=== PATIENT | female | born 1985 | race African-American/Black ===

== ENCOUNTER 2018-03-23 06:28 | Day surgery (SDC) | payer MEDICAID, SELFPAY ==
[2018-03-23] VITALS (9 sets, daily range): BP systolic 116–136; BP diastolic 70–92; PULSE 66–73; RESP 14–18; TEMP 36.4–36.9; O2SAT 97–100; BMI 34.7
--- NOTE | 2018-03-23 | HID_PTH ---
PATIENT: TWIN RAMIREZ [place]: [facility] [place] U#:[id number] AGE/SX: 32/F ROOM: RE03/23/[address]: Dr. Joey Reyes MD : 1985 BED: DIS: 03/24/2018 SPEC #: [id number] RECD: 03/23/18 11:56 STATUS: SHAQ REMahsa #: [id number] AMELIE: 03/23/18 00:[address]: Joey Reyes DEPT: SURGICAL PATHOLOGY RECD BY: Caio Campuzano ENTERED: 03/23/18 11:56 SP TYPE: Lennie BIANCHI DR: Dr. Nikhil Osorio MD Tissues: Axilla, NOS Procedures: Surgery Specimen Level III HEADER OPERATION: Right axilla excision hidradenitis PRE-OP DIAGNOSIS: Hidradenitis suppurativa, personal history of methicillin resistant staphylococcus aureus infection TISSUE SUBMITTED: Right axilla hidradenitis soft tissue for permanent MICROSCOPIC DIAGNOSIS Right axilla hidradenitis: Skin with underlying tissue with mild chronic inflammation. KARRIE:jean 03/24/18 MICROSCOPIC DESCRIPTION Slides are reviewed. GROSS DESCRIPTION Received in fixative is one container labeled with the patient's name and designated right axilla hidradenitis soft tissue for permanent. The specimen consists of a piece of brown skin with underlying tissue measuring 7.5 x 4.5 cm and up to 1.5 cm in thickness. Sections do not reveal any mass lesion. Greenskeeper Laborer sections are submitted in three cassettes. / KARRIE:jean 03/23/18 TC:3 CPT: 58736
[2018-03-23] MEDS: Cefazolin 2 GM in 0.9% Normal Saline 100 ML IV (08:04)
--- NOTE | 2018-03-23 09:00 | PCM.IMDPSTOP ---
Immediate Post-Op Note Date of Procedure: 03/23/18 Primary Surgeon/Physician: Joey Reyes flamer sealer: None Pre-Operative Diagnosis: 1. Right axillary hidradenitis. 2. History of MRSA. 3. Smoker. Post-Operative Diagnosis: Same. Surgery/Procedure Performed:: Surgical preparation right axilla with excision hidradenitis (66 cm2). Description of Surgical Findings:: 32 year old woman presents for evaluation of hidradenitis in her right axillary area that has recently sustained a flare-up that necessitated antibiotic therapy. At present, she has no drainage. She still has some right axillary pain. She denies any fever. She had excision left axillary hidradenitis in 2010. She has a history of MRSA. Today the patient underwent surgical preparation right axilla with excision hidradenitis (66 cm2). Size of defect right axillary area - 11 x 6 x 1.5 cm. Estimated Blood Loss: 25 ml. Specimen's removed: Right axillary hidradenitis to Pathology and Microbiology. Drains: None. Type of Anesthesia:: General - Admit VTE Documentation VTE Present on Admission: No VTE Mechan Device Prophylaxis: SCD's VTE Pharm Prophylaxis ordered?: No
[2018-03-23] MEDS: Lactated Ringers 1,000 ML 60 ML IV (14:23)
[2018-03-23] MEDS: Cefazolin 1 GM/50 ML BAG IV ×2 (14:23→22:38)
--- NOTE | 2018-03-23 15:49 | CASEMGMT ---
RN JENNIFER received update from wound nurse that patient will need HHC for wound vac changes. KADI RODRIGUEZ obtained list of in-network HHC. [facility] denied due to staffing. Referral sent to [facility] and denied due to staffing. Referral sent to [facility] and status is pending. CM will continue to follow to assist with HHC setup.
--- NOTE | 2018-03-23 18:02 | PCM.OPRPT ---
Report of Operation Date of Procedure: 03/23/18 Pre-Operative Diagnosis: 1. Right axillary hidradenitis. 2. History of MRSA. 3. Smoker. Post-Operative Diagnosis: Same. Surgery/Procedure Performed:: Surgical preparation right axilla with excision hidradenitis (66 cm2). Description of Surgical Findings:: 32 year old woman presents for evaluation of hidradenitis in her right axillary area that has recently sustained a flare-up that necessitated antibiotic therapy. At present, she has no drainage. She still has some right axillary pain. She denies any fever. She had excision left axillary hidradenitis in 2010. She has a history of MRSA. Patient was informed of the risks and complications of the procedure including alternatives to surgery. These were discussed with the patient personally. Patient voices understanding and wishes to proceed. Some of the risks and complications were included in a form from the [place] [employer]. Size of defect right axillary area - 11 x 6 x 1.5 cm. technician inventory specialist: None Type of Anesthesia:: General Specimen's removed: Right axillary hidradenitis to Pathology and Microbiology. Drains: None. Estimated Blood Loss (mL): 25 ml. Description of Procedure: Patient was taken to OR in supine position and was placed under general anesthesia. The right axillary area was prepped and draped in the usual fashion. SCD's were placed for DVT prophylaxis. Perioperative antibiotics were given intravenously. Using xylocaine with epinephrine, the right axillary area was infiltrated. After waiting 5 minutes for the anesthetic to take effect, I made an incision around the area of chronic induration and redness indicative of hidradenitis. Dissection went through the subcutaneous tissue until the underlying muscle and fascia were seen. No pus was seen. A lot of fat necrosis was present. Some of the tissue was sent to Pathology for analysis to rule out carcinoma. Some of the tissue was sent to Microbiology for culture. A positive culture will necessitate antibiotic therapy. Hemostasis was obtained with electrocautery. The wound was irrigated with saline. The size of the wound after excision of the hidradenitis was 11 x 6 x 1.5 cm or 66 cm2. The wound was dressed with Mepitel nonadherent dressing followed by Kerlix gauze and Betadine followed by dry Kerlix gauze and ABD pad followed by a compression TEMO wrap. Patient tolerated the procedure well and was sent to PACU in satisfactory condition. Patient will be sent upstairs for continued postop care. Tomorrow the VAC will be applied. Once approved and tolerating po analgesia, she will be discharged home. After discharge, she will followup at the Wound Center. If there is a plateau in the healing process, then can proceed with delayed closure with skin grafting. Grafts/Implants Used: None. - Complications None. - Admit VTE Documentation VTE Present on Admission: No VTE Mechan Device Prophylaxis: SCD's VTE Pharm Prophylaxis ordered?: No Code Visit Surgery Charges CPT - 20569 ICD-10 - S41.101A, L73.2, Z86.14, F17.200
[2018-03-23] MEDS: Docusate Sodium 100 MG Capsule PO (22:38)
--- NOTE | 2018-03-24 00:03 | OP.PCM_ITS ---
Report of Operation Date of Procedure: 03/23/18 Pre-Operative Diagnosis: 1. Right axillary hidradenitis. 2. History of MRSA. 3. Smoker. Post-Operative Diagnosis: Same. Surgery/Procedure Performed:: Surgical preparation right axilla with excision hidradenitis (66 cm2). Description of Surgical Findings:: 32 year old woman presents for evaluation of hidradenitis in her right axillary area that has recently sustained a flare-up that necessitated antibiotic therapy. At present, she has no drainage. She still has some right axillary pain. She denies any fever. She had excision left axillary hidradenitis in 2010. She has a history of MRSA. Patient was informed of the risks and complications of the procedure including alternatives to surgery. These were discussed with the patient personally. Patient voices understanding and wishes to proceed. Some of the risks and complications were included in a form from the [place] [employer]. Size of defect right axillary area - 11 x 6 x 1.5 cm. car varnisher: None Type of Anesthesia:: General Specimen's removed: Right axillary hidradenitis to Pathology and Microbiology. Drains: None. Estimated Blood Loss (mL): 25 ml. Description of Procedure: Patient was taken to OR in supine position and was placed under general anesthesia. The right axillary area was prepped and draped in the usual fashion. SCD's were placed for DVT prophylaxis. Perioperative antibiotics were given intravenously. Using xylocaine with epinephrine, the right axillary area was infiltrated. After waiting 5 minutes for the anesthetic to take effect , I made an incision around the area of chronic induration and redness indicative of hidradenitis. Dissection went through the subcutaneous tissue until the underlying muscle and fascia were seen. No pus was seen. A lot of fat necrosis was present. Some of the tissue was sent to Pathology for analysis to rule out carcinoma. Some of the tissue was sent to Microbiology for culture. A positive culture will necessitate antibiotic therapy. Hemostasis was obtained with electrocautery. The wound was irrigated with saline. The size of the wound after excision of the hidradenitis was 11 x 6 x 1.5 cm or 66 cm2. The wound was dressed with Mepitel nonadherent dressing followed by Kerlix gauze and Betadine followed by dry Kerlix gauze and ABD pad followed by a compression TEMO wrap. Patient tolerated the procedure well and was sent to PACU in satisfactory condition. Patient will be sent upstairs for continued postop care. Tomorrow the VAC will be applied. Once approved and tolerating po analgesia, she will be discharged home. After discharge, she will followup at the Wound Center. If there is a plateau in the healing process , then can proceed with delayed closure with skin grafting. Grafts/Implants Used: None. - Complications None. - Admit VTE Documentation VTE Present on Admission: No VTE Mechan Device Prophylaxis: SCD's VTE Pharm Prophylaxis ordered?: No Code Visit Surgery Charges CPT - 48580 ICD-10 - S41.101A, L73.2, Z86.14, F17.200
[2018-03-24] MEDS: Cefazolin 1 GM/50 ML BAG IV ×2 (06:10→14:20)
[2018-03-24 06:19] LABS: Hematocrit 36.9 % (37-47); Hemoglobin 12.7 g/dl (12.0-15.0); Mean Corp Hgb Conc 34.4 g/gl (32-36); Mean Corpuscular Volume 84.2 fL (81-99); Mean Platelet Vol. 10.4 fl (6.2-12.0); Platelet Count 311 K/mm3 (150-450); RBC Distribution Width CV 14.7 % (11.6-14.6); RBC Distribution Width SD 44.3 fl (35.1-43.9); Red Blood Count 4.38 M/mm3 (4.2-5.4); White Blood Count 6.8 K/mm3 (4.4-11.0)
[2018-03-24] MEDS: oxyCODONE 5 MG Tablet 10 MG PO (06:19)
[2018-03-24] MEDS: Lactated Ringers 1,000 ML 60 ML IV (06:22)
[2018-03-24 06:24] LABS: Scan Indicated on CBC? Y/N NO
[2018-03-24 06:48] LABS: Anion Gap 8 (5-15); BUN 12 mg/dL (7-18); BUN/Creat Ratio 18.1 RATIO (10-20); Calcium,Total 8.4 mg/dL (8.5-10.1); Chloride 108 mmol/L (98-107); Creatinine, Serum 0.66 mg/dL (0.55-1.02); EST Glomerular Filtration Rate 109 mL/min (>60); Est Glom Filt Rate - Afr Amer 132 mL/min (>60); Estimated Creatinine Clearance 101.23 ml/min; Glucose 97 mg/dL (74-106); Potassium 3.9 mmol/L (3.5-5.1); Prealbumin 25.2 mg/dL (20.0-40.0); Sodium Level 141 mmol/L (136-145)
[2018-03-24 08:41] VITALS: BP 101/69; PULSE 82; RESP 16; TEMP 36.8; O2SAT 100
[2018-03-24] MEDS: Ondansetron 4 MG/2 ML Vial IV (08:55)
--- NOTE | 2018-03-24 10:00 | NURSING ---
wound photo: right axilla
[2018-03-24] MEDS: Docusate Sodium 100 MG Capsule PO (11:28)
[2018-03-24 12:47] VITALS: BP 124/72; PULSE 86; RESP 18; TEMP 37; O2SAT 100
--- NOTE | 2018-03-24 18:23 | PN.SURG_ITS ---
Subjective: Postop #1 Patient is resting comfortably. VAC applied today. - Physical Exam General: Alert, Oriented x3 HEENT: PERRLA, EOMI Oral: Moist Mucosa Neck: Supple Lungs: Clear to auscultation Cardiovascular: Regular rate, Regular Rhythm Skin: Ulcer/ Wound - right axillary wound is stable. No bleeding seen. VAC applied today. Neurological: Cranial nerves II-XII grossly intact Psych/Mental Status: Normal Affect, Appropriate Vital Signs Temp Pulse Resp BP Pulse Ox 98.6 F 86 18 124/72 H 100 03/24/18 12:47 03/24/18 12:47 03/24/18 12:47 03/24/18 12:47 03/24/18 12:47 Oxygen Delivery Method Room Air Weight: 195 lb 12.328 oz Body Mass Index (BMI) 34.7 Intake and Output for Last 24 Hours 03/22/18 03/23/18 03/24/18 23:59 23:59 23:59 Intake Total 1652 / 1652 1900 / 1900 Output Total 250 / 250 Balance 1402 / 1402 1900 / 1900 Microbiology Past 72 Hours 03/23/18 Unknown Gram Stain - Final Tissue - Other Wound Culture - Preliminary No growth-Final to follow Laboratory Tests Past 24 Hrs 03/24/18 03/24/18 05:20 05:20 WBC 6.8 RBC 4.38 Hgb 12.7 Hct 36.9 L MCV 84.2 MCH 29.0 MCHC 34.4 RDW 14.7 H RDW Differential 44.3 H Plt Count 311 MPV 10.4 Sodium 141 Potassium 3.9 Chloride 108 H Carbon Dioxide 25.0 Anion Gap 8 BUN 12 Creatinine 0.66 Estim Creat Clear Calc 101.23 Est GFR (MDRD) Af Amer 132 Est GFR (MDRD) Non-Af 109 BUN/Creatinine Ratio 18.1 Glucose 97 Calcium 8.4 L Prealbumin 25.2 Medical Necessity - Tobacco Use Smoking Status: Current every day smoker Tobacco Use: Cigarettes Assessment/Plan All Active Problems (Last Updated 03/20/18 @ 02:47 by Joey Reyes MD) Open wound of right axillary region (Acute) 1. Right axillary hidradenitis. 2. History of MRSA. 3. Smoker. 4. s/p surgical preparation right axilla with excision hidradenitis (66 cm2). 5. Open surgical hidradenitis wound right axilla. VAC applied today. To be changed three times per week at 150 mmHg continuous suction. Will have it changed at the Wound Center. Her operative culture is negative thus far. She will go home on Doxycycline. Her Prealbumin from 03/24/18 was 25.2. Encourage nutritional supplementation with protein to help the healing process. Encourage range of motion exercises to minimize stiffness. Encouraged patient to stop smoking as it may have deleterious effects on wound healing. VAC has been approved. Discharge home today. Followup Wound Center on Tuesday03/27/18. Wrote scripts for Percocet for pain (50 tabs) and for Valium for spasm (30 tabs) . Wrote script for Doxycycline for 14 days and 2 refills. Wrote scripts for Phenergan for nausea (30 tabs) and a refill and for Colace for constipation (60 tabs). Code Visit Inpatient E&M: 62061 Subs Hosp L2 - ICD-10 - S41.101A, L73.2, Z86.14, F17.200
--- NOTE | 2018-03-24 18:34 | PCM.DC ---
You will use the following diet at home:: No restrictions, Other - encourage nutritional supplementation with protein to help the healing process. Discharge Activity: May not drive while taking narcotic pain medications., - - encourage range of motion exercises to minimize stiffness. May shower in (days): 2 - may shower on the days the vac is changed. May resume sexual activity in: No Restrictions Weight Bearing Status: Weight bearing as tolerated Additional Activity Instructions:: VAC dressing changes three times per week at 150 mmHg continuous suction. Call your doctor if your incision/area has: Continuous Slow Oozing, Sudden Increased Bleeding, Increased Pain/ Swelling, Increased Redness, Foul Smelling Discharge, Swelling at the incision site Call your doctor if you observe: Fever of 101 or Higher, Coldness, Increased Pain, Shortness of breath, Chest pain, Calf discomfort, Uncontrolled pain Suture Line Care: - - vac changes three times per week. Cleanse incision/area with: Soap & Water - may cleanse the wound with soap and water on the days the vac is changed., - - may shower on the days the vac is changed. Allergies/Adverse Reactions: Allergies No Known Allergies Allergy (Verified 03/15/18 11:00) Medications to take at Discharge Diazepam [Valium] 5 mg PO 4X/DAY PRN PRN #30 tab 03/24/18 Docusate Sodium [Colace] 100 mg PO BID #60 cap 03/24/18 Doxycycline [Vibramycin] 100 mg PO BID #28 cap 03/24/18 Oxycodone HCl/Acetaminophen [Percocet 5/325] 1 - 2 tab PO 4X/DAY PRN PRN 7 Days #50 tab 03/24/18 proMETHazine tablet [Phenergan tablet] 25 mg PO 4X/DAY PRN PRN #30 tab 03/24/18 The following prescriptions were given: Diazepam [Valium] 5 mg PO 4X/DAY PRN PRN #30 tab PRN Reason: Spasms Oxycodone HCl/Acetaminophen [Percocet 5/325] 1 - 2 tab PO 4X/DAY PRN PRN 7 Days #50 tab PRN Reason: Pain proMETHazine tablet [Phenergan tablet] 25 mg PO 4X/DAY PRN PRN #30 tab PRN Reason: Nausea Docusate Sodium [Colace] 100 mg PO BID #60 cap Doxycycline [Vibramycin] 100 mg PO BID #28 cap Primary Care Physician: Nikhil Osorio MD [Primary Care Provider] - Test Results: Test results from this visit will be discussed in further detail at your follow-up appointment, if applicable. Please Follow Up With: Joey Reyes MD When: Tuesday03/27/18 at the wound center. Proposed Discharge Date: 03/24/18
[2018-03-24 18:52] VITALS: BP 126/79; PULSE 65; RESP 12; TEMP 37.1; O2SAT 97
== END 2018-03-24 19:00 | disposition home or self-care (01) ==
LOC: SDC 06:29 → AC 06:31 → MS3 08:12
PROVIDERS: Family Provider Family Medicine; PCP Family Medicine; Visit Provider Surgery
PROC: (CPT 11450; principal; 2018-03-23 07:45)
DX: L73.2 Hidradenitis suppurativa (principal); F17.210 Nicotine dependence, cigarettes, uncomplicated; Z86.14 Personal history of Methicillin resistant Staphylococcus aureus infection
CPT/HCPCS: 11450; 36415; 80048; 84134; 85027; 87015; 87070; 87075; 87116; 87205; 87206; 88304; J7120; J2405

== ENCOUNTER 2018-04-02 21:46 | Emergency (ER) | payer MEDICAID, SELFPAY ==
[2018-04-02 21:46] VITALS: BP 157/92; PULSE 81; RESP 17; TEMP 36.6; O2SAT 98; BMI 34.2
--- NOTE | 2018-04-02 23:20 | ED.DCSUM_ITS ---
- ER Visit Summary Date of Service: 04/02/18 Chief Complaint: Wound check History of Present Illness: The patient is a 32 F who recently had surgery for hidradenitis. She is a wound VAC to her right axilla. It was most recently changed on the . She tried to remove it tonight but the sponges stuck and causing her pain. She has an appointment Dr. Reyes tomorrow. Physical Examination: Blood pressure is 157/92, otherwise normal. Head neck examination unremarkable. Heart is regular rate and rhythm. Lung sounds are clear. Right axilla reveals wound VAC sponge in place. There is no surrounding cellulitis and no drainage from the wound. Test Results: [] Emergency Department Course and Treatment: Patient was treated with oxycodone. Lidocaine jelly was applied around the wound. 20 minutes later the wound was saturated with normal saline and the sponge was able to be removed. Wet-to-dry dressing is placed. She will follow-up with Dr. Reyes tomorrow as scheduled. Treatment Plan: [] Disposition: Discharge Impression: Wound VAC removal This note was generated with [employer] dictation software. It may contain incorrect words, spelling, and punctuation that were not noted in review of the chart prior to signing ED Disposition - Plan for ED Patient: Disposition: Home or Assisted Living Chief Complaint: Wound Check Instructions: ED Wound Check Post Op No Infec Referrals: Joey Reyes MD [STAFF PHYSICIAN] - Keep Elian appointment
[2018-04-02] MEDS: oxyCODONE 5 MG Tablet 10 MG PO (23:35)
--- NOTE | 2018-04-03 00:25 | ED.DEP ---
ED Disposition - Plan for ED Patient: Disposition: Home or Assisted Living Chief Complaint: Wound Check Instructions: ED Wound Check Post Op No Infec Referrals: Joey Reyes MD [STAFF PHYSICIAN] - Keep Elian appointment
[2018-04-03] MEDS: oxyCODONE 5 MG Tablet PO (00:38)
[2018-04-03 00:40] VITALS: BP 157/92; PULSE 77; RESP 15; O2SAT 95
== END 2018-04-03 00:42 | disposition home or self-care (01) ==
PROVIDERS: Emergency Provider Emergency Medicine; Family Provider Family Medicine; PCP Family Medicine
DX: Z48.01 Encounter for change or removal of surgical wound dressing (principal); Z98.890 Other specified postprocedural states; Z72.0 Tobacco use; Z79.2 Long term (current) use of antibiotics; Z79.899 Other long term (current) drug therapy
CPT/HCPCS: 99283

== ENCOUNTER 2018-04-10 09:00 | Outpatient (RCR) | payer MEDICAID, SELFPAY ==
[2018-03-27 09:09] VITALS: BP 137/85; PULSE 81; RESP 16; TEMP 36.5; BMI 34.5
--- NOTE | 2018-03-27 21:44 | PN.PCM_ITS ---
Type of Wound Date of Service: 03/27/18 Chief Complaint: Open surgical hidradenitis wound right axilla. History of Wound: Surgery 03/23/18 - Surgical preparation right axilla with excision hidradenitis (66 cm2). Wound care - VAC. Operative culture - negative. She was placed on Doxycycline perioperatively and is finishing them. Prealbumin from 03/24/18 was 25.2. Encourage nutritional supplementation with protein to help the healing process. Encourage range of motion exercises to minimize stiffness. Today she denies fever. Her appetite is good. Progress of Wound: Recent surgery 03/23/18. - Physical Exam Vital Signs Temp Pulse Resp BP 97.7 F L 81 16 137/85 H 03/27/18 09:09 03/27/18 09:09 03/27/18 09:09 03/27/18 09:09 Wound Measurements and Assessment WC - Nurse 1 - General Ulcer Measurement Start: 03/27/18 09:09 Freq: Status: Active Protocol: Activity Type Activity Date Activity User E-Sign Co-Sign Detail Recorded Client Recorded Date Recorded By Document 03/27/18 09:09 MW [id number] 03/27/18 09:15 MW 03/27/18 09:09 Wound Center Nurse 1 [Ulcer Assessment] #2 RIGHT AXILLARY -Combined with other wound No -Current Size (cm) - Length 4.0 -Current Size (cm) - Width 10.8 -Current Size (cm) - Depth 0.6 -Total Square Cm 43.20 -Date of Last Picture (Recall this 03/27/18 field) -Photo Taken Yes -Epithelialization None Present -Tunneling No -Undermining/Tunneling No -Circular Undermining No -Exudate Amt Medium (34-66%) -Exudate Type Serosanguineous -Wound Margin Flat & Intact -Granulation Amt Medium (34-66%) -Granulation Quality [place] -Slough/Fibrin Yes -Necrosis Amt Medium (34-66%) -Necrotic Tissue Type Adherent Slough -Structure Exposed N/A -Texture (Shruthi-wound Skin Appearance) No Abnormality Assessed -Moisture (Shruthi-wound Skin Appearance No Abnormality ) Assessed -Color (Shruthi-wound Skin Appearance) No Abnormality Assessed -Temperature (Shruthi-wound Skin No Abnormality Appearance) (Pt Warm) -Tenderness on Palpation (Shruthi-wound No Skin Appearance) -Ulcer Cleansing Rinsed/ Irrigated with Saline -Foul Odor after Cleansing No -Anesthetic Used 4% Lidocaine Solution [Edema Assessment] -Lower Limb Edema Present No WC - Nurse 2 - General Ulcer CM Notes Start: 03/27/18 09:09 Freq: Status: Active Protocol: Activity Type Activity Date Activity User E-Sign Co-Sign Detail Recorded Client Recorded Date Recorded By Document 03/27/18 09:30 [id number] 03/27/18 09:31 03/27/18 09:30 Wound Center Nurse 2 [Procedure/Treatment] #2 RIGHT AXILLARY -Correct Patient No -Correct Side, Site, Position No -Correct Procedure No -Procedure Performed No [See Physician Procedure note for Specifics] Pain Scale: 0-10 Numeric [Pain] -Is Patient Pain Free? Yes Debridement Note Post-Debridement Measurements/Treatment WC - Nurse 2 - General Ulcer CM Notes Start: 03/27/18 09:09 Freq: Status: Active Protocol: Activity Type Activity Date Activity User E-Sign Co-Sign Detail Recorded Client Recorded Date Recorded By Document 03/27/18 09:30 [id number] 03/27/18 09:31 03/27/18 09:30 Wound Center Nurse 2 #2 RIGHT AXILLARY -Correct Patient No -Correct Side, Site, Position No -Correct Procedure No -Procedure Performed No Pain Scale: 0-10 Numeric Is Patient Pain Free? Yes Wound debrided: #2 Right axilla. Laterality: Right Wound Grade/Stage: 2. No debridement was completed today - patient had recent surgery on 03/23/18. Assessment/Plan Assessment: 1. Right axillary hidradenitis. 2. History of MRSA. 3. Smoker. 4. s/p surgical preparation right axilla with excision hidradenitis (66 cm2) . 5. Open surgical hidradenitis wound right axilla. Plan: Continue the VAC. To be changed three times per week at 150 mmHg continuous suction. Her operative culture is negative. She is finishing the Doxycycline. Her Prealbumin from 03/24/18 was 25.2. Encourage nutritional supplementation with protein to help the healing process. Encourage range of motion exercises to minimize stiffness. Encouraged patient to stop smoking as it may have deleterious effects on wound healing. Followup one week.
[2018-03-29 09:45] VITALS: BP 123/86; PULSE 77; RESP 20; TEMP 36.4; BMI 34.5
[2018-04-03 11:01] VITALS: BP 150/96; PULSE 79; RESP 18; TEMP 36.6; BMI 34.5
--- NOTE | 2018-04-03 23:01 | PCM.WC.PN ---
Type of Wound Date of Service: 04/03/18 Chief Complaint: Open surgical hidradenitis wound right axilla. History of Wound: Surgery 03/23/18 - Surgical preparation right axilla with excision hidradenitis (66 cm2). Wound care - VAC. Operative culture - negative. She was placed on Doxycycline perioperatively and is finishing them. Prealbumin from 03/24/18 was 25.2. Encourage nutritional supplementation with protein to help the healing process. Encourage range of motion exercises to minimize stiffness. Today she denies fever. Her appetite is good. Progress of Wound: Improved. - Physical Exam Vital Signs Temp Pulse Resp BP 97.8 F 79 18 150/96 H 04/03/18 11:01 04/03/18 11:01 04/03/18 11:01 04/03/18 11:01 Wound Measurements and Assessment - Nurse 1 - General Ulcer Measurement Start: 03/27/18 09:09 Freq: Status: Active Protocol: Activity Type Activity Date Activity User E-Sign Co-Sign Detail Recorded Client Recorded Date Recorded By Document 04/03/18 11:01 [id number] 04/03/18 11:03 04/03/18 11:01 Wound Center Nurse 1 [Ulcer Assessment] #2 RIGHT AXILLARY -Combined with other wound No -Current Size (cm) - Length 3 -Current Size (cm) - Width 10.6 -Current Size (cm) - Depth 0.6 -Total Square Cm 31.8 -Photo Taken No -Epithelialization None Present -Tunneling No -Undermining/Tunneling No -Circular Undermining No -Exudate Amt Medium (34-66%) -Exudate Type Serosanguineous -Wound Margin Distinct, Outline Attached -Granulation Amt Medium (34-66%) -Granulation Quality [place] Red -Slough/Fibrin Yes -Necrosis Amt None Present (0 %) -Necrotic Tissue Type Adherent Slough -Structure Exposed None/Limited to Skin Breakdown -Texture (Shruthi-wound Skin Appearance) No Abnormality Assessed -Moisture (Shruthi-wound Skin Appearance No Abnormality ) Assessed -Color (Shruthi-wound Skin Appearance) No Abnormality Assessed -Temperature (Shruthi-wound Skin No Abnormality Appearance) (Pt Warm) -Tenderness on Palpation (Shruthi-wound Yes Skin Appearance) -Ulcer Cleansing Rinsed/ Irrigated with Saline -Foul Odor after Cleansing No -Anesthetic Used 4% Lidocaine Solution - Nurse 2 - General Ulcer CM Notes Start: 03/27/18 09:09 Freq: Status: Active Protocol: Activity Type Activity Date Activity User E-Sign Co-Sign Detail Recorded Client Recorded Date Recorded By Document 04/03/18 11:45 [id number] 04/03/18 11:46 04/03/18 11:45 Wound Center Nurse 2 [Procedure/Treatment] -Time 11:46 -Correct Patient Yes -Correct Side, Site, Position Yes -Correct Procedure Yes -Procedure Performed Yes -Type of Procedure Debridement -Clinical Debridement Subcutaneous -Post Debridement Size (cm) - Length 3.1 -Post Debridement Size (cm) - Width 10.3 -Post Debridement Size (cm) - Depth 0.1 -Total Square Cm 31.93 -Wound/Ulcer Outcome Not Healed -Ulcer Cleansing Rinsed/ Irrigated with Saline -Foul Odor after Cleansing No -Bioengineered Tissue No -Bleeding Controlled with Pressure -Treatment Response Procedure Tolerated Well [See Physician Procedure note for Specifics] Pain Scale: 0-10 Numeric [Pain] -Is Patient Pain Free? Yes Debridement Note Post-Debridement Measurements/Treatment - Nurse 2 - General Ulcer CM Notes Start: 03/27/18 09:09 Freq: Status: Active Protocol: Activity Type Activity Date Activity User E-Sign Co-Sign Detail Recorded Client Recorded Date Recorded By Document 03/27/18 09:30 JF [id number] 03/27/18 09:31 Document 04/03/18 11:45 JF [id number] 04/03/18 11:46 03/27/18 04/03/18 09:30 11:45 Wound Center Nurse 2 #2 RIGHT AXILLARY -Time 11:46 -Correct Patient No Yes -Correct Side, Site, Position No Yes -Correct Procedure No Yes -Procedure Performed No Yes -Type of Procedure Debridement -Clinical Debridement Subcutaneous -Post Debridement Size (cm) - Length 3.1 -Post Debridement Size (cm) - Width 10.3 -Post Debridement Size (cm) - Depth 0.1 -Total Square Cm 31.93 -Wound/Ulcer Outcome Not Healed -Ulcer Cleansing Rinsed/ Irrigated with Saline -Foul Odor after Cleansing No -Bioengineered Tissue No -Bleeding Controlled with Pressure -Treatment Response Procedure Tolerated Well Pain Scale: 0-10 Numeric Is Patient Pain Free? Yes Yes Wound debrided: #2 Right axilla. Laterality: Right Wound Grade/Stage: 2. Type of Debridement: Excisional debridement Anesthesia Used: 4% Lidocaine Solution Depth: Down to and including healthy tissue, in the subcutaneous layer Percentage of wound debrided: 100 Instrument Used: 7mm curette Tissue Removed: subcutaneous tissue. Severity: Fat Layer Exposed Amount of bleeding with debridement: Mild Bleeding Controlled with: Pressure Patient tolerated procedure well Assessment/Plan Assessment: 1. Right axillary hidradenitis. 2. History of MRSA. 3. Smoker. 4. s/p surgical preparation right axilla with excision hidradenitis (66 cm2). 5. Open surgical hidradenitis wound right axilla. Plan: Continue the VAC. To be changed three times per week at 150 mmHg continuous suction. Her operative culture is negative. She is finishing the Doxycycline. Her Prealbumin from 03/24/18 was 25.2. Encourage nutritional supplementation with protein to help the healing process. Encourage range of motion exercises to minimize stiffness. Encouraged patient to stop smoking as it may have deleterious effects on wound healing. Renewed her Percocet for pain (40 tabs). Renewed her Valium for spasm (30 tabs). Followup one week to see Tiffanie, Nurse Practitioner. Followup 3 weeks to see me.
[2018-04-10 09:07] VITALS: BP 133/85; PULSE 83; RESP 20; TEMP 36.5; BMI 34.5
--- NOTE | 2018-04-10 17:28 | PCM.WC.PN ---
(1) Open wound of right axillary region Status: Acute Current Visit: Yes Code(s): S41.101A - Unspecified open wound of right upper arm, initial encounter (2) Hidradenitis suppurativa Status: Chronic Current Visit: Yes Code(s): L73.2 - Hidradenitis suppurativa Comment: 8 cm right axillary hidradenitis (3) Smoker Status: Chronic Current Visit: No Code(s): F17.200 - Nicotine dependence, unspecified, uncomplicated (4) Personal history of Methicillin resistant Staphylococcus aureus infection Status: Chronic Current Visit: No Code(s): Z86.14 - Personal history of Methicillin resistant Staphylococcus aureus infection Type of Wound Date of Service: 04/10/18 Chief Complaint: Open surgical hidradenitis wound right axilla. History of Wound: Surgery 03/23/18 - Surgical preparation right axilla with excision hidradenitis (66 cm2). Wound care - VAC. Operative culture - negative. She was placed on Doxycycline perioperatively and has finished them. Prealbumin from 03/24/18 was 25.2. Encourage nutritional supplementation with protein to help the healing process. Encourage range of motion exercises to minimize stiffness. Today she denies fever. Her appetite is good. Progress of Wound: Wound improving. Patient has had a break from the wound VAC since last week due to her shruthi wound having blisters from the tape. - Physical Exam Vital Signs Temp Pulse Resp BP 97.7 F L 83 20 H 133/85 H 04/10/18 09:07 04/10/18 09:07 04/10/18 09:07 04/10/18 09:07 General: Alert, Oriented x3, Cooperative HEENT: Atraumatic Cardiovascular: Regular rate Extremities: No clubbing, No cyanosis, No edema Skin: Ulcer/ Wound - Right axilla wound opened and pink in color. Wound Measurements and Assessment WC - Nurse 1 - General Ulcer Measurement Start: 03/27/18 09:09 Freq: Status: Active Protocol: Activity Type Activity Date Activity User E-Sign Co-Sign Detail Recorded Client Recorded Date Recorded By Document 04/10/18 09:07 DL [id number] 04/10/18 09:14 DL 04/10/18 09:07 Wound Center Nurse 1 [Ulcer Assessment] #2 RIGHT AXILLARY -Current Size (cm) - Length 3.8 -Current Size (cm) - Width 9.2 -Current Size (cm) - Depth 0.2 -Total Square Cm 34.96 -Photo Taken No -Exudate Amt Medium (34-66%) -Exudate Type Serosanguineous -Wound Margin Distinct, Outline Attached -Granulation Amt Large (67-100%) -Granulation Quality Red -Necrosis Amt Small (1-33%) -Necrotic Tissue Type Adherent Slough -Structure Exposed N/A -Texture (Shruthi-wound Skin Appearance) Scarring -Moisture (Shruthi-wound Skin Appearance No Abnormality ) -Color (Shruthi-wound Skin Appearance) No Abnormality -Temperature (Shruthi-wound Skin No Abnormality Appearance) (Pt Warm) -Ulcer Cleansing Wound Cleanser -Foul Odor after Cleansing No -Anesthetic Used 4% Lidocaine Solution - Nurse 2 - General Ulcer CM Notes Start: 03/27/18 09:09 Freq: Status: Active Protocol: Activity Type Activity Date Activity User E-Sign Co-Sign Detail Recorded Client Recorded Date Recorded By Document 04/10/18 09:33 CANDI [id number] 04/10/18 09:35 CANDI 04/10/18 09:33 Wound Center Nurse 2 [Procedure/Treatment] -Time 09:34 -Correct Patient Yes -Correct Side, Site, Position Yes -Correct Procedure Yes -Procedure Performed Yes -Type of Procedure Debridement -Clinical Debridement Subcutaneous -Post Debridement Size (cm) - Length 4.0 -Post Debridement Size (cm) - Width 9.4 -Post Debridement Size (cm) - Depth 0.2 -Total Square Cm 37.60 -Wound/Ulcer Outcome Not Healed -Ulcer Cleansing Rinsed/ Irrigated with Saline -Foul Odor after Cleansing No -Bioengineered Tissue No -Bleeding Controlled with Pressure -Treatment Response Procedure Tolerated Well [See Physician Procedure note for Specifics] Pain Scale: 0-10 Numeric [Pain] -Is Patient Pain Free? Yes Musculoskeletal: No Tenderness to Palpation of Joints or Extremities Neurological: Neuro grossly intact Psych/Mental Status: Normal Affect, Appropriate, Alert and oriented to time, place, person, mood and affect Debridement Note Post-Debridement Measurements/Treatment WC - Nurse 2 - General Ulcer CM Notes Start: 03/27/18 09:09 Freq: Status: Active Protocol: Activity Type Activity Date Activity User E-Sign Co-Sign Detail Recorded Client Recorded Date Recorded By Document 03/27/18 09:30 CANDI [id number] 03/27/18 09:31 Document 04/03/18 11:45 [id number] [id number] 04/03/18 11:46 Document 04/10/18 09:33 [id number] 04/10/18 09:35 03/27/18 04/03/18 04/10/18 09:30 11:45 09:33 Wound Center Nurse 2 #2 RIGHT AXILLARY -Time 11:46 09:34 -Correct Patient No Yes Yes -Correct Side, Site, Position No Yes Yes -Correct Procedure No Yes Yes -Procedure Performed No Yes Yes -Type of Procedure Debridement Debridement -Clinical Debridement Subcutaneous Subcutaneous -Post Debridement Size (cm) - Length 3.1 4.0 -Post Debridement Size (cm) - Width 10.3 9.4 -Post Debridement Size (cm) - Depth 0.1 0.2 -Total Square Cm 31.93 37.60 -Wound/Ulcer Outcome Not Healed Not Healed -Ulcer Cleansing Rinsed/ Rinsed/ Irrigated with Irrigated with Saline Saline -Foul Odor after Cleansing No No -Bioengineered Tissue No No -Bleeding Controlled with Pressure Pressure -Treatment Response Procedure Procedure Tolerated Well Tolerated Well Pain Scale: 0-10 Numeric Is Patient Pain Free? Yes Yes Yes Wound debrided: Right axilla wound Laterality: Right Type of Debridement: Excisional debridement Anesthesia Used: 4% Lidocaine Solution Depth: Down to and including healthy tissue, in the subcutaneous layer Percentage of wound debrided: 100 Instrument Used: 7mm curette Tissue Removed: Subcutaneous and slough. Severity: Fat Layer Exposed Amount of bleeding with debridement: Mild Bleeding Controlled with: Pressure Patient tolerated procedure well Assessment/Plan Active Problems (Last Updated 03/20/18 @ 02:47 by Joey Reyes MD) Open wound of right axillary region (Acute) Hidradenitis suppurativa (Chronic) 8 cm right axillary hidradenitis Assessment: 1. Right axillary hidradenitis. 2. History of MRSA. 3. Smoker. 4. s/p surgical preparation right axilla with excision hidradenitis (66 cm2). 5. Open surgical hidradenitis wound right axilla. Plan: Continue the VAC. To be changed three times per week at 150 mmHg continuous suction. Her operative culture is negative. She is finishing the Doxycycline. Her Prealbumin from 03/24/18 was 25.2. Encourage nutritional supplementation with protein to help the healing process. She will follow up in 2 weeks. Encourage range of motion exercises to minimize stiffness. Encouraged patient to stop smoking as it may have deleterious effects on wound healing. Followup one week. Code Visit 111xxx-113xx: [id number] Leighann subq tissue 20 sq cm/< Add On Codes: [id number] Leighann subq tissue add-on
--- NOTE | 2018-04-11 10:32 | PN.PCM_ITS ---
(1) Open wound of right axillary region Status: Acute Current Visit: Yes Code(s): S41.101A - Unspecified open wound of right upper arm, initial encounter (2) Hidradenitis suppurativa Status: Chronic Current Visit: Yes Code(s): L73.2 - Hidradenitis suppurativa Comment: 8 cm right axillary hidradenitis (3) Smoker Status: Chronic Current Visit: No Code(s): F17.200 - Nicotine dependence, unspecified, uncomplicated (4) Personal history of Methicillin resistant Staphylococcus aureus infection Status: Chronic Current Visit: No Code(s): Z86.14 - Personal history of Methicillin resistant Staphylococcus aureus infection Type of Wound Date of Service: 04/10/18 Chief Complaint: Open surgical hidradenitis wound right axilla. History of Wound: Surgery 03/23/18 - Surgical preparation right axilla with excision hidradenitis (66 cm2). Wound care - VAC. Operative culture - negative. She was placed on Doxycycline perioperatively and has finished them. Prealbumin from 03/24/18 was 25.2. Encourage nutritional supplementation with protein to help the healing process. Encourage range of motion exercises to minimize stiffness. Today she denies fever. Her appetite is good. Progress of Wound: Wound improving. Patient has had a break from the wound VAC since last week due to her shruthi wound having blisters from the tape. - Physical Exam Vital Signs Temp Pulse Resp BP 97.7 F L 83 20 H 133/85 H 04/10/18 09:07 04/10/18 09:07 04/10/18 09:07 04/10/18 09:07 General: Alert, Oriented x3, Cooperative HEENT: Atraumatic Cardiovascular: Regular rate Extremities: No clubbing, No cyanosis, No edema Skin: Ulcer/ Wound - Right axilla wound opened and pink in color. Wound Measurements and Assessment WC - Nurse 1 - General Ulcer Measurement Start: 03/27/18 09:09 Freq: Status: Active Protocol: Activity Type Activity Date Activity User E-Sign Co-Sign Detail Recorded Client Recorded Date Recorded By Document 04/10/18 09:07 DL [id number] 04/10/18 09:14 DL 04/10/18 09:07 Wound Center Nurse 1 [Ulcer Assessment] #2 RIGHT AXILLARY -Current Size (cm) - Length 3.8 -Current Size (cm) - Width 9.2 -Current Size (cm) - Depth 0.2 -Total Square Cm 34.96 -Photo Taken No -Exudate Amt Medium (34-66%) -Exudate Type Serosanguineous -Wound Margin Distinct, Outline Attached -Granulation Amt Large (67-100%) -Granulation Quality Red -Necrosis Amt Small (1-33%) -Necrotic Tissue Type Adherent Slough -Structure Exposed N/A -Texture (Shruthi-wound Skin Appearance) Scarring -Moisture (Shruthi-wound Skin Appearance No Abnormality ) -Color (Shruthi-wound Skin Appearance) No Abnormality -Temperature (Shruthi-wound Skin No Abnormality Appearance) (Pt Warm) -Ulcer Cleansing Wound Cleanser -Foul Odor after Cleansing No -Anesthetic Used 4% Lidocaine Solution - Nurse 2 - General Ulcer CM Notes Start: 03/27/18 09:09 Freq: Status: Active Protocol: Activity Type Activity Date Activity User E-Sign Co-Sign Detail Recorded Client Recorded Date Recorded By Document 04/10/18 09:33 CANDI [id number] 04/10/18 09:35 CANDI 04/10/18 09:33 Wound Center Nurse 2 [Procedure/Treatment] -Time 09:34 -Correct Patient Yes -Correct Side, Site, Position Yes -Correct Procedure Yes -Procedure Performed Yes -Type of Procedure Debridement -Clinical Debridement Subcutaneous -Post Debridement Size (cm) - Length 4.0 -Post Debridement Size (cm) - Width 9.4 -Post Debridement Size (cm) - Depth 0.2 -Total Square Cm 37.60 -Wound/Ulcer Outcome Not Healed -Ulcer Cleansing Rinsed/ Irrigated with Saline -Foul Odor after Cleansing No -Bioengineered Tissue No -Bleeding Controlled with Pressure -Treatment Response Procedure Tolerated Well [See Physician Procedure note for Specifics] Pain Scale: 0-10 Numeric [Pain] -Is Patient Pain Free? Yes Musculoskeletal: No Tenderness to Palpation of Joints or Extremities Neurological: Neuro grossly intact Psych/Mental Status: Normal Affect, Appropriate, Alert and oriented to time, place, person, mood and affect Debridement Note Post-Debridement Measurements/Treatment WC - Nurse 2 - General Ulcer CM Notes Start: 03/27/18 09:09 Freq: Status: Active Protocol: Activity Type Activity Date Activity User E-Sign Co-Sign Detail Recorded Client Recorded Date Recorded By Document 03/27/18 09:30 CANDI [id number] 03/27/18 09:31 Document 04/03/18 11:45 [email or web address] [id number] 04/03/18 11:46 Document 04/10/18 09:33 [id number] 04/10/18 09:35 03/27/18 04/03/18 04/10/18 09:30 11:45 09:33 Wound Center Nurse 2 #2 RIGHT AXILLARY -Time 11:46 09:34 -Correct Patient No Yes Yes -Correct Side, Site, Position No Yes Yes -Correct Procedure No Yes Yes -Procedure Performed No Yes Yes -Type of Procedure Debridement Debridement -Clinical Debridement Subcutaneous Subcutaneous -Post Debridement Size (cm) - Length 3.1 4.0 -Post Debridement Size (cm) - Width 10.3 9.4 -Post Debridement Size (cm) - Depth 0.1 0.2 -Total Square Cm 31.93 37.60 -Wound/Ulcer Outcome Not Healed Not Healed -Ulcer Cleansing Rinsed/ Rinsed/ Irrigated with Irrigated with Saline Saline -Foul Odor after Cleansing No No -Bioengineered Tissue No No -Bleeding Controlled with Pressure Pressure -Treatment Response Procedure Procedure Tolerated Well Tolerated Well Pain Scale: 0-10 Numeric Is Patient Pain Free? Yes Yes Yes Wound debrided: Right axilla wound Laterality: Right Type of Debridement: Excisional debridement Anesthesia Used: 4% Lidocaine Solution Depth: Down to and including healthy tissue, in the subcutaneous layer Percentage of wound debrided: 100 Instrument Used: 7mm curette Tissue Removed: Subcutaneous and slough. Severity: Fat Layer Exposed Amount of bleeding with debridement: Mild Bleeding Controlled with: Pressure Patient tolerated procedure well Assessment/Plan Active Problems (Last Updated 03/20/18 @ 02:47 by Joey Reyes MD) Open wound of right axillary region (Acute) Hidradenitis suppurativa (Chronic) 8 cm right axillary hidradenitis Assessment: 1. Right axillary hidradenitis. 2. History of MRSA. 3. Smoker. 4. s/p surgical preparation right axilla with excision hidradenitis (66 cm2). 5. Open surgical hidradenitis wound right axilla. Plan: Continue the VAC. To be changed three times per week at 150 mmHg continuous suction. Her operative culture is negative. She is finishing the Doxycycline. Her Prealbumin from 03/24/18 was 25.2. Encourage nutritional supplementation with protein to help the healing process. She will follow up in 2 weeks. Encourage range of motion exercises to minimize stiffness. Encouraged patient to stop smoking as it may have deleterious effects on wound healing. Followup one week. Code Visit 111xxx-113xx: [id number] Leighann subq tissue 20 sq cm/< Add On Codes: [id number] Leighann subq tissue add-on
== END 2018-04-16 23:59 ==
LOC: WC 09:00
PROVIDERS: Family Provider Family Medicine; PCP Family Medicine; Visit Provider Surgery
DX: L73.2 Hidradenitis suppurativa (principal); Z86.14 Personal history of Methicillin resistant Staphylococcus aureus infection; F17.200 Nicotine dependence, unspecified, uncomplicated
CPT/HCPCS: 11042; 11045; 97605; 99211; 99213; G0463

== ENCOUNTER 2018-05-15 08:00 | Outpatient (RCR) | payer MEDICAID, SELFPAY ==
[2018-04-17 01:34] VITALS: BP 133/85; PULSE 83; RESP 20; TEMP 36.5
[2018-04-17 09:51] VITALS: BP 130/91; PULSE 95; RESP 16; TEMP 36.6
--- NOTE | 2018-04-18 10:44 | PCM.WC.PN ---
(1) Open wound of right axillary region Status: Acute Current Visit: Yes Code(s): S41.101A - Unspecified open wound of right upper arm, initial encounter (2) Smoker Status: Chronic Current Visit: Yes Code(s): F17.200 - Nicotine dependence, unspecified, uncomplicated (3) Personal history of Methicillin resistant Staphylococcus aureus infection Status: Chronic Current Visit: No Code(s): Z86.14 - Personal history of Methicillin resistant Staphylococcus aureus infection (4) Hidradenitis suppurativa Status: Chronic Current Visit: Yes Code(s): L73.2 - Hidradenitis suppurativa Comment: 8 cm right axillary hidradenitis Type of Wound Date of Service: 04/17/18 Chief Complaint: Open surgical hidradenitis wound right axilla. History of Wound: Surgery 03/23/18 - Surgical preparation right axilla with excision hidradenitis (66 cm2). Wound care - VAC. Operative culture - negative. She was placed on Doxycycline perioperatively and has finished them. Prealbumin from 03/24/18 was 25.2. Encourage nutritional supplementation with protein to help the healing process. Encourage range of motion exercises to minimize stiffness. Today she denies fever. Her appetite is good. Progress of Wound: Wound improving. - Physical Exam Vital Signs Temp Pulse Resp BP 97.8 F 95 16 130/91 H 04/17/18 09:51 04/17/18 09:51 04/17/18 09:51 04/17/18 09:51 General: Alert, Oriented x3 HEENT: PERRLA Oral: Moist Mucosa Cardiovascular: Regular rate Extremities: No clubbing, No edema, Peripheral Pulses Normal Skin: Ulcer/ Wound - Right axilla wound is clean, with pink granulation tissue present. Wound Measurements and Assessment WC - Nurse 1 - General Ulcer Measurement Start: 04/17/18 09:51 Freq: Status: Active Protocol: Activity Type Activity Date Activity User E-Sign Co-Sign Detail Recorded Client Recorded Date Recorded By Document 04/17/18 09:51 BULMARO [id number] 04/17/18 10:15 BULMARO 04/17/18 09:51 Wound Center Nurse 1 [Ulcer Assessment] #2 RIGHT AXILLARY -Combined with other wound No -Current Size (cm) - Length 2.9 -Current Size (cm) - Width 8.7 -Current Size (cm) - Depth 0.2 -Total Square Cm 25.23 -Date of Last Picture (Recall this 03/27/18 field) -Photo Taken No -Epithelialization Small 1-33% -Tunneling No -Undermining/Tunneling No -Circular Undermining No -Classification - Thickness Full Thickness without Exposed Support Structure -Exudate Amt Small (1-33%) -Exudate Type Serosanguineous -Wound Margin Distinct, Outline Attached -Granulation Amt Large (67-100%) -Granulation Quality Pale [place] -Slough/Fibrin Yes -Necrosis Amt None Present (0 %) -Necrotic Tissue Type Adherent Slough -Structure Exposed None/Limited to Skin Breakdown -Texture (Shruthi-wound Skin Appearance) No Abnormality -Moisture (Shruthi-wound Skin Appearance No Abnormality ) -Color (Shruthi-wound Skin Appearance) No Abnormality -Temperature (Shruthi-wound Skin No Abnormality Appearance) (Pt Warm) -Tenderness on Palpation (Shruthi-wound No Skin Appearance) -Ulcer Cleansing DYNAHEX -Foul Odor after Cleansing No -Anesthetic Used 4% Lidocaine Solution WC - Nurse 2 - General Ulcer CM Notes Start: 04/17/18 09:51 Freq: Status: Active Protocol: Activity Type Activity Date Activity User E-Sign Co-Sign Detail Recorded Client Recorded Date Recorded By Document 04/17/18 10:40 CANDI [id number] 04/17/18 10:43 CANDI 04/17/18 10:40 Wound Center Nurse 2 [Procedure/Treatment] -Time 10:40 -Correct Patient Yes -Correct Side, Site, Position Yes -Correct Procedure Yes -Procedure Performed Yes -Type of Procedure Debridement -Clinical Debridement Subcutaneous -Post Debridement Size (cm) - Length 3.4 -Post Debridement Size (cm) - Width 8.7 -Post Debridement Size (cm) - Depth 0.2 -Total Square Cm 29.58 -Wound/Ulcer Outcome Not Healed -Ulcer Cleansing Rinsed/ Irrigated with Saline -Foul Odor after Cleansing No -Bioengineered Tissue No -Bleeding Controlled with Pressure -Treatment Response Procedure Tolerated Well [See Physician Procedure note for Specifics] Pain Scale: 0-10 Numeric [Pain] -Is Patient Pain Free? Yes Musculoskeletal: No Tenderness to Palpation of Joints or Extremities Neurological: Neuro grossly intact Psych/Mental Status: Normal Affect, Appropriate Debridement Note Post-Debridement Measurements/Treatment WC - Nurse 2 - General Ulcer CM Notes Start: 04/17/18 09:51 Freq: Status: Active Protocol: Activity Type Activity Date Activity User E-Sign Co-Sign Detail Recorded Client Recorded Date Recorded By Document 04/17/18 10:40 CANDI [id number] 04/17/18 10:43 CANDI 04/17/18 10:40 Wound Center Nurse 2 #2 RIGHT AXILLARY -Time 10:40 -Correct Patient Yes -Correct Side, Site, Position Yes -Correct Procedure Yes -Procedure Performed Yes -Type of Procedure Debridement -Clinical Debridement Subcutaneous -Post Debridement Size (cm) - Length 3.4 -Post Debridement Size (cm) - Width 8.7 -Post Debridement Size (cm) - Depth 0.2 -Total Square Cm 29.58 -Wound/Ulcer Outcome Not Healed -Ulcer Cleansing Rinsed/ Irrigated with Saline -Foul Odor after Cleansing No -Bioengineered Tissue No -Bleeding Controlled with Pressure -Treatment Response Procedure Tolerated Well Pain Scale: 0-10 Numeric Is Patient Pain Free? Yes Wound debrided: Right axilla Laterality: Right Type of Debridement: Excisional debridement Anesthesia Used: 4% Lidocaine Solution Depth: in the subcutaneous layer Percentage of wound debrided: 100 Instrument Used: 7mm curette Tissue Removed: Subcutaneous tissue and slough. Severity: Fat Layer Exposed Amount of bleeding with debridement: Mild Bleeding Controlled with: Pressure Patient tolerated procedure well Assessment/Plan Active Problems (Last Updated 03/20/18 @ 02:47 by Joey Reyes MD) Open wound of right axillary region (Acute) Smoker (Chronic) Hidradenitis suppurativa (Chronic) 8 cm right axillary hidradenitis Assessment: 1. Right axillary hidradenitis. 2. History of MRSA. 3. Smoker. 4. s/p surgical preparation right axilla with excision hidradenitis (66 cm2). 5. Open surgical hidradenitis wound right axilla. Plan: Will take a one-week break from the wound VAC. Patient is getting frustrated with caring pump around with her all the time. Will have her do daily dressing changes with Fibracol plus to right axilla. Her operative culture is negative. She has finished the Doxycycline. Her Prealbumin from 03/24/18 was 25.2. Encourage nutritional supplementation with protein to help the healing process. She will follow up in 2 weeks. Encourage range of motion exercises to minimize stiffness. Encouraged patient to stop smoking as it may have deleterious effects on wound healing. Followup one week. Code Visit 111xxx-113xx: [id number] Leighann subq tissue 20 sq cm/< Add On Codes: 19853 Leighann subq tissue add-on
--- NOTE | 2018-04-18 10:48 | PN.PCM_ITS ---
(1) Open wound of right axillary region Status: Acute Current Visit: Yes Code(s): S41.101A - Unspecified open wound of right upper arm, initial encounter (2) Smoker Status: Chronic Current Visit: Yes Code(s): F17.200 - Nicotine dependence, unspecified, uncomplicated (3) Personal history of Methicillin resistant Staphylococcus aureus infection Status: Chronic Current Visit: No Code(s): Z86.14 - Personal history of Methicillin resistant Staphylococcus aureus infection (4) Hidradenitis suppurativa Status: Chronic Current Visit: Yes Code(s): L73.2 - Hidradenitis suppurativa Comment: 8 cm right axillary hidradenitis Type of Wound Date of Service: 04/17/18 Chief Complaint: Open surgical hidradenitis wound right axilla. History of Wound: Surgery 03/23/18 - Surgical preparation right axilla with excision hidradenitis (66 cm2). Wound care - VAC. Operative culture - negative. She was placed on Doxycycline perioperatively and has finished them. Prealbumin from 03/24/18 was 25.2. Encourage nutritional supplementation with protein to help the healing process. Encourage range of motion exercises to minimize stiffness. Today she denies fever. Her appetite is good. Progress of Wound: Wound improving. - Physical Exam Vital Signs Temp Pulse Resp BP 97.8 F 95 16 130/91 H 04/17/18 09:51 04/17/18 09:51 04/17/18 09:51 04/17/18 09:51 General: Alert, Oriented x3 HEENT: PERRLA Oral: Moist Mucosa Cardiovascular: Regular rate Extremities: No clubbing, No edema, Peripheral Pulses Normal Skin: Ulcer/ Wound - Right axilla wound is clean, with pink granulation tissue present. Wound Measurements and Assessment WC - Nurse 1 - General Ulcer Measurement Start: 04/17/18 09:51 Freq: Status: Active Protocol: Activity Type Activity Date Activity User E-Sign Co-Sign Detail Recorded Client Recorded Date Recorded By Document 04/17/18 09:51 BULMARO [id number] 04/17/18 10:15 BULMARO 04/17/18 09:51 Wound Center Nurse 1 [Ulcer Assessment] #2 RIGHT AXILLARY -Combined with other wound No -Current Size (cm) - Length 2.9 -Current Size (cm) - Width 8.7 -Current Size (cm) - Depth 0.2 -Total Square Cm 25.23 -Date of Last Picture (Recall this 03/27/18 field) -Photo Taken No -Epithelialization Small 1-33% -Tunneling No -Undermining/Tunneling No -Circular Undermining No -Classification - Thickness Full Thickness without Exposed Support Structure -Exudate Amt Small (1-33%) -Exudate Type Serosanguineous -Wound Margin Distinct, Outline Attached -Granulation Amt Large (67-100%) -Granulation Quality Pale [place] -Slough/Fibrin Yes -Necrosis Amt None Present (0 %) -Necrotic Tissue Type Adherent Slough -Structure Exposed None/Limited to Skin Breakdown -Texture (Shruthi-wound Skin Appearance) No Abnormality -Moisture (Shruthi-wound Skin Appearance No Abnormality ) -Color (Shruthi-wound Skin Appearance) No Abnormality -Temperature (Shruthi-wound Skin No Abnormality Appearance) (Pt Warm) -Tenderness on Palpation (Shruthi-wound No Skin Appearance) -Ulcer Cleansing DYNAHEX -Foul Odor after Cleansing No -Anesthetic Used 4% Lidocaine Solution WC - Nurse 2 - General Ulcer CM Notes Start: 04/17/18 09:51 Freq: Status: Active Protocol: Activity Type Activity Date Activity User E-Sign Co-Sign Detail Recorded Client Recorded Date Recorded By Document 04/17/18 10:40 CANDI [id number] 04/17/18 10:43 CANDI 04/17/18 10:40 Wound Center Nurse 2 [Procedure/Treatment] -Time 10:40 -Correct Patient Yes -Correct Side, Site, Position Yes -Correct Procedure Yes -Procedure Performed Yes -Type of Procedure Debridement -Clinical Debridement Subcutaneous -Post Debridement Size (cm) - Length 3.4 -Post Debridement Size (cm) - Width 8.7 -Post Debridement Size (cm) - Depth 0.2 -Total Square Cm 29.58 -Wound/Ulcer Outcome Not Healed -Ulcer Cleansing Rinsed/ Irrigated with Saline -Foul Odor after Cleansing No -Bioengineered Tissue No -Bleeding Controlled with Pressure -Treatment Response Procedure Tolerated Well [See Physician Procedure note for Specifics] Pain Scale: 0-10 Numeric [Pain] -Is Patient Pain Free? Yes Musculoskeletal: No Tenderness to Palpation of Joints or Extremities Neurological: Neuro grossly intact Psych/Mental Status: Normal Affect, Appropriate Debridement Note Post-Debridement Measurements/Treatment WC - Nurse 2 - General Ulcer CM Notes Start: 04/17/18 09:51 Freq: Status: Active Protocol: Activity Type Activity Date Activity User E-Sign Co-Sign Detail Recorded Client Recorded Date Recorded By Document 04/17/18 10:40 CANDI [id number] 04/17/18 10:43 CANDI 04/17/18 10:40 Wound Center Nurse 2 #2 RIGHT AXILLARY -Time 10:40 -Correct Patient Yes -Correct Side, Site, Position Yes -Correct Procedure Yes -Procedure Performed Yes -Type of Procedure Debridement -Clinical Debridement Subcutaneous -Post Debridement Size (cm) - Length 3.4 -Post Debridement Size (cm) - Width 8.7 -Post Debridement Size (cm) - Depth 0.2 -Total Square Cm 29.58 -Wound/Ulcer Outcome Not Healed -Ulcer Cleansing Rinsed/ Irrigated with Saline -Foul Odor after Cleansing No -Bioengineered Tissue No -Bleeding Controlled with Pressure -Treatment Response Procedure Tolerated Well Pain Scale: 0-10 Numeric Is Patient Pain Free? Yes Wound debrided: Right axilla Laterality: Right Type of Debridement: Excisional debridement Anesthesia Used: 4% Lidocaine Solution Depth: in the subcutaneous layer Percentage of wound debrided: 100 Instrument Used: 7mm curette Tissue Removed: Subcutaneous tissue and slough. Severity: Fat Layer Exposed Amount of bleeding with debridement: Mild Bleeding Controlled with: Pressure Patient tolerated procedure well Assessment/Plan Active Problems (Last Updated 03/20/18 @ 02:47 by Joey Reyes MD) Open wound of right axillary region (Acute) Smoker (Chronic) Hidradenitis suppurativa (Chronic) 8 cm right axillary hidradenitis Assessment: 1. Right axillary hidradenitis. 2. History of MRSA. 3. Smoker. 4. s/p surgical preparation right axilla with excision hidradenitis (66 cm2). 5. Open surgical hidradenitis wound right axilla. Plan: Will take a one-week break from the wound VAC. Patient is getting frustrated with caring pump around with her all the time. Will have her do daily dressing changes with Fibracol plus to right axilla. Her operative culture is negative. She has finished the Doxycycline. Her Prealbumin from 03/24/18 was 25.2. Encourage nutritional supplementation with protein to help the healing process. She will follow up in 2 weeks. Encourage range of motion exercises to minimize stiffness. Encouraged patient to stop smoking as it may have deleterious effects on wound healing. Followup one week. Code Visit 111xxx-113xx: [id number] Leighann subq tissue 20 sq cm/< Add On Codes: [id number] Leighann subq tissue add-on
[2018-04-24 09:47] VITALS: BP 138/92; PULSE 93; RESP 18; TEMP 36.6
--- NOTE | 2018-04-24 22:29 | PCM.WC.PN ---
Type of Wound Date of Service: 04/24/18 Chief Complaint: Nonhealing hidradenitis ulcer right axilla. History of Wound: Surgery 03/23/18 - Surgical preparation right axilla with excision hidradenitis (66 cm2). Wound care - Siver with a VAC holiday. Operative culture - negative. She was placed on Doxycycline perioperatively and has finished them. Prealbumin from 03/24/18 was 25.2. Encourage nutritional supplementation with protein to help the healing process. Encourage range of motion exercises to minimize stiffness. Today she denies fever. Her appetite is good. Progress of Wound: Improved. - Physical Exam Vital Signs Temp Pulse Resp BP 97.9 F 93 18 138/92 H 04/24/18 09:47 04/24/18 09:47 04/24/18 09:47 04/24/18 09:47 Wound Measurements and Assessment WC - Nurse 1 - General Ulcer Measurement Start: 04/17/18 09:51 Freq: Status: Active Protocol: Activity Type Activity Date Activity User E-Sign Co-Sign Detail Recorded Client Recorded Date Recorded By Document 04/24/18 09:47 DV [id number] 04/24/18 09:52 DV 04/24/18 09:47 Wound Center Nurse 1 [Ulcer Assessment] #2 RIGHT AXILLARY -Combined with other wound No -Current Size (cm) - Length 2.2 -Current Size (cm) - Width 7.2 -Current Size (cm) - Depth 0.1 -Total Square Cm 15.84 -Date of Last Picture (Recall this 04/24/18 field) -Photo Taken Yes -Epithelialization Small 1-33% -Tunneling No -Undermining/Tunneling No -Circular Undermining No -Classification - Thickness Full Thickness without Exposed Support Structure -Exudate Amt None Present (0 %) -Wound Margin Flat & Intact -Granulation Amt Large (67-100%) -Granulation Quality Red -Slough/Fibrin Yes -Necrosis Amt None Present (0 %) -Necrotic Tissue Type Adherent Slough -Structure Exposed N/A -Texture (Shruthi-wound Skin Appearance) Assessed Scarring -Moisture (Shruthi-wound Skin Appearance No Abnormality ) Assessed -Color (Shruthi-wound Skin Appearance) No Abnormality Assessed -Temperature (Shruthi-wound Skin No Abnormality Appearance) (Pt Warm) -Ulcer Cleansing Rinsed/ Irrigated with Saline -Foul Odor after Cleansing No -Anesthetic Used 4% Lidocaine Solution - Nurse 2 - General Ulcer CM Notes Start: 04/17/18 09:51 Freq: Status: Active Protocol: Activity Type Activity Date Activity User E-Sign Co-Sign Detail Recorded Client Recorded Date Recorded By Document 04/24/18 10:05 CANDI [id number] 04/24/18 10:07 04/24/18 10:05 Wound Center Nurse 2 [Procedure/Treatment] -Time 10:05 -Correct Patient Yes -Correct Side, Site, Position Yes -Correct Procedure Yes -Procedure Performed Yes -Type of Procedure Debridement -Clinical Debridement Subcutaneous -Post Debridement Size (cm) - Length 2.3 -Post Debridement Size (cm) - Width 7.3 -Post Debridement Size (cm) - Depth 0.1 -Total Square Cm 16.79 -Wound/Ulcer Outcome Not Healed -Ulcer Cleansing Rinsed/ Irrigated with Saline -Foul Odor after Cleansing No -Bioengineered Tissue No -Bleeding Controlled with Pressure -Treatment Response Procedure Tolerated Well [See Physician Procedure note for Specifics] Pain Scale: 0-10 Numeric [Pain] -Is Patient Pain Free? Yes Debridement Note Post-Debridement Measurements/Treatment - Nurse 2 - General Ulcer CM Notes Start: 04/17/18 09:51 Freq: Status: Active Protocol: Activity Type Activity Date Activity User E-Sign Co-Sign Detail Recorded Client Recorded Date Recorded By Document 04/17/18 10:40 [id number] 04/17/18 10:43 Document 04/24/18 10:05 [id number] 04/24/18 10:07 04/17/18 04/24/18 10:40 10:05 Wound Center Nurse 2 #2 RIGHT AXILLARY -Time 10:40 10:05 -Correct Patient Yes Yes -Correct Side, Site, Position Yes Yes -Correct Procedure Yes Yes -Procedure Performed Yes Yes -Type of Procedure Debridement Debridement -Clinical Debridement Subcutaneous Subcutaneous -Post Debridement Size (cm) - Length 3.4 2.3 -Post Debridement Size (cm) - Width 8.7 7.3 -Post Debridement Size (cm) - Depth 0.2 0.1 -Total Square Cm 29.58 16.79 -Wound/Ulcer Outcome Not Healed Not Healed -Ulcer Cleansing Rinsed/ Rinsed/ Irrigated with Irrigated with Saline Saline -Foul Odor after Cleansing No No -Bioengineered Tissue No No -Bleeding Controlled with Pressure Pressure -Treatment Response Procedure Procedure Tolerated Well Tolerated Well Pain Scale: 0-10 Numeric Is Patient Pain Free? Yes Yes Wound debrided: #2 Right axilla. Laterality: Right Wound Grade/Stage: 2. Type of Debridement: Excisional debridement Anesthesia Used: 4% Lidocaine Solution Depth: Down to and including healthy tissue, in the subcutaneous layer Percentage of wound debrided: 100 Instrument Used: 5mm curette Tissue Removed: subcutaneous tissue. Severity: Fat Layer Exposed Amount of bleeding with debridement: Mild Bleeding Controlled with: Pressure Patient tolerated procedure well Assessment/Plan Assessment: 1. Nonhealing hidradenitis ulcer right axilla. 2. Right axillary hidradenitis. 3. History of MRSA. 4. Smoker. 5. s/p surgical preparation right axilla with excision hidradenitis (66 cm2). Plan: Stop the VAC. Continue Silver dressing changes daily. Her operative culture is negative. She has finished the Doxycycline. Her Prealbumin from 03/24/18 was 25.2. Encourage nutritional supplementation with protein to help the healing process. Encourage range of motion exercises to minimize stiffness. Encouraged patient to stop smoking as it may have deleterious effects on wound healing. Followup one week to see Tiffanie Nurse Practitioner. Followup 2 weeks to see me. She wants to return to work sooner than 05/18/18. She thinks she will be ready in a couple of weeks, so tentative return to work will be 05/07/18. Will reassess at her next visit.
[2018-05-01 10:30] VITALS: BP 128/79; PULSE 87; RESP 16; TEMP 36.2
--- NOTE | 2018-05-01 12:44 | PCM.WC.PN ---
(1) Open wound of right axillary region Status: Acute Current Visit: Yes Code(s): S41.101A - Unspecified open wound of right upper arm, initial encounter (2) Smoker Status: Chronic Current Visit: No Code(s): F17.200 - Nicotine dependence, unspecified, uncomplicated (3) Personal history of Methicillin resistant Staphylococcus aureus infection Status: Chronic Current Visit: No Code(s): Z86.14 - Personal history of Methicillin resistant Staphylococcus aureus infection (4) Hidradenitis suppurativa Status: Chronic Current Visit: Yes Code(s): L73.2 - Hidradenitis suppurativa Comment: 8 cm right axillary hidradenitis Type of Wound Date of Service: 05/01/18 Chief Complaint: Nonhealing hidradenitis ulcer right axilla. History of Wound: Surgery 03/23/18 - Surgical preparation right axilla with excision hidradenitis (66 cm2). Wound care - Siver with a VAC holiday. Operative culture - negative. She was placed on Doxycycline perioperatively and has finished them. Prealbumin from 03/24/18 was 25.2. Encourage nutritional supplementation with protein to help the healing process. Encourage range of motion exercises to minimize stiffness. Today she denies fever. Her appetite is good. Progress of Wound: Improved. - Physical Exam Vital Signs Temp Pulse Resp BP 97.1 F L 87 16 128/79 H 05/01/18 10:30 05/01/18 10:30 05/01/18 10:30 05/01/18 10:30 General: Alert, Oriented x3, Cooperative HEENT: Atraumatic Lungs: Normal air movement Extremities: No edema Skin: Ulcer/ Wound - Right axilla Wound Measurements and Assessment WC - Nurse 1 - General Ulcer Measurement Start: 04/17/18 09:51 Freq: Status: Active Protocol: Activity Type Activity Date Activity User E-Sign Co-Sign Detail Recorded Client Recorded Date Recorded By Document 05/01/18 10:30 MW [id number] 05/01/18 10:35 MW 05/01/18 10:30 Wound Center Nurse 1 [Ulcer Assessment] #2 RIGHT AXILLARY -Combined with other wound No -Current Size (cm) - Length 1.8 -Current Size (cm) - Width 4.6 -Current Size (cm) - Depth 0.1 -Total Square Cm 8.28 -Photo Taken No -Epithelialization Small 1-33% -Tunneling No -Undermining/Tunneling No -Circular Undermining No -Exudate Amt Small (1-33%) -Exudate Type Serosanguineous -Wound Margin Flat & Intact -Granulation Amt Large (67-100%) -Granulation Quality [place] -Slough/Fibrin Yes -Necrosis Amt Small (1-33%) -Necrotic Tissue Type Adherent Slough -Structure Exposed N/A -Texture (Shruthi-wound Skin Appearance) Assessed Scarring -Moisture (Shruthi-wound Skin Appearance No Abnormality ) Assessed -Color (Shruthi-wound Skin Appearance) No Abnormality Assessed -Temperature (Shruthi-wound Skin No Abnormality Appearance) (Pt Warm) -Tenderness on Palpation (Shruthi-wound No Skin Appearance) -Ulcer Cleansing Rinsed/ Irrigated with Saline -Foul Odor after Cleansing No -Anesthetic Used 5% Lidocaine Gel [Edema Assessment] -Lower Limb Edema Present No WC - Nurse 2 - General Ulcer CM Notes Start: 04/17/18 09:51 Freq: Status: Active Protocol: Activity Type Activity Date Activity User E-Sign Co-Sign Detail Recorded Client Recorded Date Recorded By Document 05/01/18 11:07 CANDI [id number] 05/01/18 11:07 05/01/18 11:07 Wound Center Nurse 2 [Procedure/Treatment] #2 RIGHT AXILLARY -Time 11:07 -Correct Patient Yes -Correct Side, Site, Position Yes -Correct Procedure Yes -Procedure Performed Yes -Type of Procedure Debridement -Clinical Debridement Subcutaneous -Post Debridement Size (cm) - Length 1.7 -Post Debridement Size (cm) - Width 5.3 -Post Debridement Size (cm) - Depth 0.1 -Total Square Cm 9.01 -Wound/Ulcer Outcome Not Healed -Ulcer Cleansing Rinsed/ Irrigated with Saline -Foul Odor after Cleansing No -Bioengineered Tissue No -Bleeding Controlled with Pressure -Treatment Response Procedure Tolerated Well [See Physician Procedure note for Specifics] Pain Scale: 0-10 Numeric [Pain] -Is Patient Pain Free? Yes Debridement Note Post-Debridement Measurements/Treatment WC - Nurse 2 - General Ulcer CM Notes Start: 04/17/18 09:51 Freq: Status: Active Protocol: Activity Type Activity Date Activity User E-Sign Co-Sign Detail Recorded Client Recorded Date Recorded By Document 04/17/18 10:40 [id number] 04/17/18 10:43 Document 04/24/18 10:05 [id number] 04/24/18 10:07 Document 05/01/18 11:07 [id number] 05/01/18 11:07 04/17/18 04/24/18 05/01/18 10:40 10:05 11:07 Wound Center Nurse 2 #2 RIGHT AXILLARY -Time 10:40 10:05 11:07 -Correct Patient Yes Yes Yes -Correct Side, Site, Position Yes Yes Yes -Correct Procedure Yes Yes Yes -Procedure Performed Yes Yes Yes -Type of Procedure Debridement Debridement Debridement -Clinical Debridement Subcutaneous Subcutaneous Subcutaneous -Post Debridement Size (cm) - Length 3.4 2.3 1.7 -Post Debridement Size (cm) - Width 8.7 7.3 5.3 -Post Debridement Size (cm) - Depth 0.2 0.1 0.1 -Total Square Cm 29.58 16.79 9.01 -Wound/Ulcer Outcome Not Healed Not Healed Not Healed -Ulcer Cleansing Rinsed/ Rinsed/ Rinsed/ Irrigated with Irrigated with Irrigated with Saline Saline Saline -Foul Odor after Cleansing No No No -Bioengineered Tissue No No No -Bleeding Controlled with Pressure Pressure Pressure -Treatment Response Procedure Procedure Procedure Tolerated Well Tolerated Well Tolerated Well Pain Scale: 0-10 Numeric Is Patient Pain Free? Yes Yes Yes Wound debrided: Right axilla ulcer Laterality: Right Type of Debridement: Excisional debridement Anesthesia Used: 4% Lidocaine Solution Depth: Down to and including healthy tissue, in the subcutaneous layer Percentage of wound debrided: 100 Instrument Used: 5mm curette Tissue Removed: Subcutaneous tissue and slough Severity: Fat Layer Exposed Amount of bleeding with debridement: Mild Bleeding Controlled with: Pressure Patient tolerated procedure well Assessment/Plan Active Problems (Last Updated 03/20/18 @ 02:47 by Joey Reyes MD) Open wound of right axillary region (Acute) Hidradenitis suppurativa (Chronic) 8 cm right axillary hidradenitis Assessment: 1. Nonhealing hidradenitis ulcer right axilla. 2. Right axillary hidradenitis. 3. History of MRSA. 4. Smoker. 5. s/p surgical preparation right axilla with excision hidradenitis (66 cm2). Plan: Continue Silver Alginate dressing changes daily. Her operative culture is negative. She has finished the Doxycycline. Her Prealbumin from 03/24/18 was 25.2. Encourage nutritional supplementation with protein to help the healing process. Encourage range of motion exercises to minimize stiffness. Encouraged patient to stop smoking as it may have deleterious effects on wound healing. Followup one week. Return to work note give for 05/07/2018. Code Visit 111xxx-113xx: [id number] Leighann subq tissue 20 sq cm/<
--- NOTE | 2018-05-02 09:49 | PN.PCM_ITS ---
(1) Open wound of right axillary region Status: Acute Current Visit: Yes Code(s): S41.101A - Unspecified open wound of right upper arm, initial encounter (2) Smoker Status: Chronic Current Visit: No Code(s): F17.200 - Nicotine dependence, unspecified, uncomplicated (3) Personal history of Methicillin resistant Staphylococcus aureus infection Status: Chronic Current Visit: No Code(s): Z86.14 - Personal history of Methicillin resistant Staphylococcus aureus infection (4) Hidradenitis suppurativa Status: Chronic Current Visit: Yes Code(s): L73.2 - Hidradenitis suppurativa Comment: 8 cm right axillary hidradenitis Type of Wound Date of Service: 05/01/18 Chief Complaint: Nonhealing hidradenitis ulcer right axilla. History of Wound: Surgery 03/23/18 - Surgical preparation right axilla with excision hidradenitis (66 cm2). Wound care - Siver with a VAC holiday. Operative culture - negative. She was placed on Doxycycline perioperatively and has finished them. Prealbumin from 03/24/18 was 25.2. Encourage nutritional supplementation with protein to help the healing process. Encourage range of motion exercises to minimize stiffness. Today she denies fever. Her appetite is good. Progress of Wound: Improved. - Physical Exam Vital Signs Temp Pulse Resp BP 97.1 F L 87 16 128/79 H 05/01/18 10:30 05/01/18 10:30 05/01/18 10:30 05/01/18 10:30 General: Alert, Oriented x3, Cooperative HEENT: Atraumatic Lungs: Normal air movement Extremities: No edema Skin: Ulcer/ Wound - Right axilla Wound Measurements and Assessment WC - Nurse 1 - General Ulcer Measurement Start: 04/17/18 09:51 Freq: Status: Active Protocol: Activity Type Activity Date Activity User E-Sign Co-Sign Detail Recorded Client Recorded Date Recorded By Document 05/01/18 10:30 MW [id number] 05/01/18 10:35 MW 05/01/18 10:30 Wound Center Nurse 1 [Ulcer Assessment] #2 RIGHT AXILLARY -Combined with other wound No -Current Size (cm) - Length 1.8 -Current Size (cm) - Width 4.6 -Current Size (cm) - Depth 0.1 -Total Square Cm 8.28 -Photo Taken No -Epithelialization Small 1-33% -Tunneling No -Undermining/Tunneling No -Circular Undermining No -Exudate Amt Small (1-33%) -Exudate Type Serosanguineous -Wound Margin Flat & Intact -Granulation Amt Large (67-100%) -Granulation Quality [place] -Slough/Fibrin Yes -Necrosis Amt Small (1-33%) -Necrotic Tissue Type Adherent Slough -Structure Exposed N/A -Texture (Shruthi-wound Skin Appearance) Assessed Scarring -Moisture (Shruthi-wound Skin Appearance No Abnormality ) Assessed -Color (Shruthi-wound Skin Appearance) No Abnormality Assessed -Temperature (Shruthi-wound Skin No Abnormality Appearance) (Pt Warm) -Tenderness on Palpation (Shruthi-wound No Skin Appearance) -Ulcer Cleansing Rinsed/ Irrigated with Saline -Foul Odor after Cleansing No -Anesthetic Used 5% Lidocaine Gel [Edema Assessment] -Lower Limb Edema Present No WC - Nurse 2 - General Ulcer CM Notes Start: 04/17/18 09:51 Freq: Status: Active Protocol: Activity Type Activity Date Activity User E-Sign Co-Sign Detail Recorded Client Recorded Date Recorded By Document 05/01/18 11:07 CANDI [id number] 05/01/18 11:07 05/01/18 11:07 Wound Center Nurse 2 [Procedure/Treatment] #2 RIGHT AXILLARY -Time 11:07 -Correct Patient Yes -Correct Side, Site, Position Yes -Correct Procedure Yes -Procedure Performed Yes -Type of Procedure Debridement -Clinical Debridement Subcutaneous -Post Debridement Size (cm) - Length 1.7 -Post Debridement Size (cm) - Width 5.3 -Post Debridement Size (cm) - Depth 0.1 -Total Square Cm 9.01 -Wound/Ulcer Outcome Not Healed -Ulcer Cleansing Rinsed/ Irrigated with Saline -Foul Odor after Cleansing No -Bioengineered Tissue No -Bleeding Controlled with Pressure -Treatment Response Procedure Tolerated Well [See Physician Procedure note for Specifics] Pain Scale: 0-10 Numeric [Pain] -Is Patient Pain Free? Yes Debridement Note Post-Debridement Measurements/Treatment WC - Nurse 2 - General Ulcer CM Notes Start: 04/17/18 09:51 Freq: Status: Active Protocol: Activity Type Activity Date Activity User E-Sign Co-Sign Detail Recorded Client Recorded Date Recorded By Document 04/17/18 10:40 [id number] 04/17/18 10:43 Document 04/24/18 10:05 [id number] 04/24/18 10:07 Document 05/01/18 11:07 [id number] 05/01/18 11:07 04/17/18 04/24/18 05/01/18 10:40 10:05 11:07 Wound Center Nurse 2 #2 RIGHT AXILLARY -Time 10:40 10:05 11:07 -Correct Patient Yes Yes Yes -Correct Side, Site, Position Yes Yes Yes -Correct Procedure Yes Yes Yes -Procedure Performed Yes Yes Yes -Type of Procedure Debridement Debridement Debridement -Clinical Debridement Subcutaneous Subcutaneous Subcutaneous -Post Debridement Size (cm) - Length 3.4 2.3 1.7 -Post Debridement Size (cm) - Width 8.7 7.3 5.3 -Post Debridement Size (cm) - Depth 0.2 0.1 0.1 -Total Square Cm 29.58 16.79 9.01 -Wound/Ulcer Outcome Not Healed Not Healed Not Healed -Ulcer Cleansing Rinsed/ Rinsed/ Rinsed/ Irrigated with Irrigated with Irrigated with Saline Saline Saline -Foul Odor after Cleansing No No No -Bioengineered Tissue No No No -Bleeding Controlled with Pressure Pressure Pressure -Treatment Response Procedure Procedure Procedure Tolerated Well Tolerated Well Tolerated Well Pain Scale: 0-10 Numeric Is Patient Pain Free? Yes Yes Yes Wound debrided: Right axilla ulcer Laterality: Right Type of Debridement: Excisional debridement Anesthesia Used: 4% Lidocaine Solution Depth: Down to and including healthy tissue, in the subcutaneous layer Percentage of wound debrided: 100 Instrument Used: 5mm curette Tissue Removed: Subcutaneous tissue and slough Severity: Fat Layer Exposed Amount of bleeding with debridement: Mild Bleeding Controlled with: Pressure Patient tolerated procedure well Assessment/Plan Active Problems (Last Updated 03/20/18 @ 02:47 by Joey Reyes MD) Open wound of right axillary region (Acute) Hidradenitis suppurativa (Chronic) 8 cm right axillary hidradenitis Assessment: 1. Nonhealing hidradenitis ulcer right axilla. 2. Right axillary hidradenitis. 3. History of MRSA. 4. Smoker. 5. s/p surgical preparation right axilla with excision hidradenitis (66 cm2). Plan: Continue Silver Alginate dressing changes daily. Her operative culture is negative. She has finished the Doxycycline. Her Prealbumin from 03/24/18 was 25.2. Encourage nutritional supplementation with protein to help the healing process. Encourage range of motion exercises to minimize stiffness. Encouraged patient to stop smoking as it may have deleterious effects on wound healing. Followup one week. Return to work note give for 05/07/2018. Code Visit 111xxx-113xx: [id number] Leighann subq tissue 20 sq cm/<
[2018-05-08 08:08] VITALS: BP 113/78; PULSE 79; RESP 18; TEMP 36.5
--- NOTE | 2018-05-08 14:29 | PCM.WC.PN ---
(1) Open wound of right axillary region Status: Acute Current Visit: Yes Code(s): S41.101A - Unspecified open wound of right upper arm, initial encounter (2) Smoker Status: Chronic Current Visit: No Code(s): F17.200 - Nicotine dependence, unspecified, uncomplicated (3) Personal history of Methicillin resistant Staphylococcus aureus infection Status: Chronic Current Visit: No Code(s): Z86.14 - Personal history of Methicillin resistant Staphylococcus aureus infection (4) Hidradenitis suppurativa Status: Chronic Current Visit: Yes Code(s): L73.2 - Hidradenitis suppurativa Comment: 8 cm right axillary hidradenitis Type of Wound Date of Service: 05/08/18 Chief Complaint: Nonhealing hidradenitis ulcer right axilla. History of Wound: Surgery 03/23/18 - Surgical preparation right axilla with excision hidradenitis (66 cm2). Wound care - Siver with a VAC holiday. Operative culture - negative. She was placed on Doxycycline perioperatively and has finished them. Prealbumin from 03/24/18 was 25.2. Encourage nutritional supplementation with protein to help the healing process. Encourage range of motion exercises to minimize stiffness. Today she denies fever. Her appetite is good. Progress of Wound: Improved. - Physical Exam Vital Signs Temp Pulse Resp BP 97.7 F L 79 18 113/78 05/08/18 08:08 05/08/18 08:08 05/08/18 08:08 05/08/18 08:08 General: Alert, Oriented x3, Cooperative HEENT: Atraumatic Oral: Moist Mucosa Extremities: No edema Skin: Ulcer/ Wound - Right axilla Wound Measurements and Assessment WC - Nurse 1 - General Ulcer Measurement Start: 04/17/18 09:51 Freq: Status: Active Protocol: Activity Type Activity Date Activity User E-Sign Co-Sign Detail Recorded Client Recorded Date Recorded By Document 05/08/18 08:08 DL [id number] 05/08/18 08:12 DL 05/08/18 08:08 Wound Center Nurse 1 [Ulcer Assessment] #2 RIGHT AXILLARY -Current Size (cm) - Length 0.8 -Current Size (cm) - Width 3.7 -Current Size (cm) - Depth 0.1 -Total Square Cm 2.96 -Photo Taken No -Exudate Amt Small (1-33%) -Exudate Type Serosanguineous -Wound Margin Distinct, Outline Attached -Granulation Amt Large (67-100%) -Granulation Quality Red -Necrosis Amt Small (1-33%) -Necrotic Tissue Type Adherent Slough -Structure Exposed N/A -Texture (Shruthi-wound Skin Appearance) No Abnormality -Moisture (Shruthi-wound Skin Appearance No Abnormality ) -Color (Shruthi-wound Skin Appearance) No Abnormality -Temperature (Shruthi-wound Skin No Abnormality Appearance) (Pt Warm) -Tenderness on Palpation (Shruthi-wound No Skin Appearance) -Ulcer Cleansing Rinsed/ Irrigated with Saline -Foul Odor after Cleansing No -Anesthetic Used 5% Lidocaine Gel WC - Nurse 2 - General Ulcer CM Notes Start: 04/17/18 09:51 Freq: Status: Active Protocol: Activity Type Activity Date Activity User E-Sign Co-Sign Detail Recorded Client Recorded Date Recorded By Document 05/08/18 08:37 [id number] 05/08/18 08:38 05/08/18 08:37 Wound Center Nurse 2 [Procedure/Treatment] -Time 08:37 -Correct Patient Yes -Correct Side, Site, Position Yes -Correct Procedure Yes -Procedure Performed Yes -Type of Procedure Debridement -Clinical Debridement Subcutaneous -Post Debridement Size (cm) - Length 1 -Post Debridement Size (cm) - Width 4 -Post Debridement Size (cm) - Depth 0.1 -Total Square Cm 4 -Wound/Ulcer Outcome Not Healed -Ulcer Cleansing Rinsed/ Irrigated with Saline -Foul Odor after Cleansing No -Bioengineered Tissue No -Bleeding Controlled with Pressure -Treatment Response Procedure Tolerated Well [See Physician Procedure note for Specifics] Pain Scale: 0-10 Numeric [Pain] -Is Patient Pain Free? Yes Musculoskeletal: No Tenderness to Palpation of Joints or Extremities Neurological: Neuro grossly intact Psych/Mental Status: Normal Affect, Appropriate Debridement Note Post-Debridement Measurements/Treatment - Nurse 2 - General Ulcer CM Notes Start: 04/17/18 09:51 Freq: Status: Active Protocol: Activity Type Activity Date Activity User E-Sign Co-Sign Detail Recorded Client Recorded Date Recorded By Document 04/17/18 10:40 [id number] 04/17/18 10:43 Document 04/24/18 10:05 [id number] 04/24/18 10:07 Document 05/01/18 11:07 [id number] 05/01/18 11:07 Document 05/08/18 08:37 [id number] 05/08/18 08:38 04/17/18 04/24/18 05/01/18 10:40 10:05 11:07 Wound Center Nurse 2 #2 RIGHT AXILLARY -Time 10:40 10:05 11:07 -Correct Patient Yes Yes Yes -Correct Side, Site, Position Yes Yes Yes -Correct Procedure Yes Yes Yes -Procedure Performed Yes Yes Yes -Type of Procedure Debridement Debridement Debridement -Clinical Debridement Subcutaneous Subcutaneous Subcutaneous -Post Debridement Size (cm) - Length 3.4 2.3 1.7 -Post Debridement Size (cm) - Width 8.7 7.3 5.3 -Post Debridement Size (cm) - Depth 0.2 0.1 0.1 -Total Square Cm 29.58 16.79 9.01 -Wound/Ulcer Outcome Not Healed Not Healed Not Healed -Ulcer Cleansing Rinsed/ Rinsed/ Rinsed/ Irrigated with Irrigated with Irrigated with Saline Saline Saline -Foul Odor after Cleansing No No No -Bioengineered Tissue No No No -Bleeding Controlled with Pressure Pressure Pressure -Treatment Response Procedure Procedure Procedure Tolerated Well Tolerated Well Tolerated Well Pain Scale: 0-10 Numeric Is Patient Pain Free? Yes Yes Yes 05/08/18 08:37 Wound Center Nurse 2 #2 RIGHT AXILLARY -Time 08:37 -Correct Patient Yes -Correct Side, Site, Position Yes -Correct Procedure Yes -Procedure Performed Yes -Type of Procedure Debridement -Clinical Debridement Subcutaneous -Post Debridement Size (cm) - Length 1 -Post Debridement Size (cm) - Width 4 -Post Debridement Size (cm) - Depth 0.1 -Total Square Cm 4 -Wound/Ulcer Outcome Not Healed -Ulcer Cleansing Rinsed/ Irrigated with Saline -Foul Odor after Cleansing No -Bioengineered Tissue No -Bleeding Controlled with Pressure -Treatment Response Procedure Tolerated Well Pain Scale: 0-10 Numeric Is Patient Pain Free? Yes Laterality: Right Type of Debridement: Excisional debridement Anesthesia Used: 4% Lidocaine Solution Depth: in the subcutaneous layer Percentage of wound debrided: 100 Instrument Used: 7mm curette Tissue Removed: Subcutaneous tissue and slough Severity: Fat Layer Exposed Amount of bleeding with debridement: Mild Bleeding Controlled with: Pressure Patient tolerated procedure well Assessment/Plan Active Problems (Last Updated 03/20/18 @ 02:47 by Joey Reyes MD) Open wound of right axillary region (Acute) Hidradenitis suppurativa (Chronic) 8 cm right axillary hidradenitis Assessment: 1. Nonhealing hidradenitis ulcer right axilla. 2. Right axillary hidradenitis. 3. History of MRSA. 4. Smoker. 5. s/p surgical preparation right axilla with excision hidradenitis (66 cm2). Plan: Continue Silver Alginate dressing changes daily. She returned to work last night with no issues. Her operative culture is negative. She has finished the Doxycycline. Her Prealbumin from 03/24/18 was 25.2. Encourage nutritional supplementation with protein to help the healing process. Encourage range of motion exercises to minimize stiffness. She does have good range of motion of right arm and shoulder. Encouraged patient to stop smoking as it may have deleterious effects on wound healing. Followup one week. Code Visit 111xxx-113xx: [id number] Leighann subq tissue 20 sq cm/<
--- NOTE | 2018-05-08 14:33 | PN.PCM_ITS ---
(1) Open wound of right axillary region Status: Acute Current Visit: Yes Code(s): S41.101A - Unspecified open wound of right upper arm, initial encounter (2) Smoker Status: Chronic Current Visit: No Code(s): F17.200 - Nicotine dependence, unspecified, uncomplicated (3) Personal history of Methicillin resistant Staphylococcus aureus infection Status: Chronic Current Visit: No Code(s): Z86.14 - Personal history of Methicillin resistant Staphylococcus aureus infection (4) Hidradenitis suppurativa Status: Chronic Current Visit: Yes Code(s): L73.2 - Hidradenitis suppurativa Comment: 8 cm right axillary hidradenitis Type of Wound Date of Service: 05/08/18 Chief Complaint: Nonhealing hidradenitis ulcer right axilla. History of Wound: Surgery 03/23/18 - Surgical preparation right axilla with excision hidradenitis (66 cm2). Wound care - [place] with a VAC holiday. Operative culture - negative. She was placed on Doxycycline perioperatively and has finished them. Prealbumin from 03/24/18 was 25.2. Encourage nutritional supplementation with protein to help the healing process. Encourage range of motion exercises to minimize stiffness. Today she denies fever. Her appetite is good. Progress of Wound: Improved. - Physical Exam Vital Signs Temp Pulse Resp BP 97.7 F L 79 18 113/78 05/08/18 08:08 05/08/18 08:08 05/08/18 08:08 05/08/18 08:08 General: Alert, Oriented x3, Cooperative HEENT: Atraumatic Oral: Moist Mucosa Extremities: No edema Skin: Ulcer/ Wound - Right axilla Wound Measurements and Assessment WC - Nurse 1 - General Ulcer Measurement Start: 04/17/18 09:51 Freq: Status: Active Protocol: Activity Type Activity Date Activity User E-Sign Co-Sign Detail Recorded Client Recorded Date Recorded By Document 05/08/18 08:08 DL [id number] 05/08/18 08:12 DL 05/08/18 08:08 Wound Center Nurse 1 [Ulcer Assessment] #2 RIGHT AXILLARY -Current Size (cm) - Length 0.8 -Current Size (cm) - Width 3.7 -Current Size (cm) - Depth 0.1 -Total Square Cm 2.96 -Photo Taken No -Exudate Amt Small (1-33%) -Exudate Type Serosanguineous -Wound Margin Distinct, Outline Attached -Granulation Amt Large (67-100%) -Granulation Quality Red -Necrosis Amt Small (1-33%) -Necrotic Tissue Type Adherent Slough -Structure Exposed N/A -Texture (Shruthi-wound Skin Appearance) No Abnormality -Moisture (Shruthi-wound Skin Appearance No Abnormality ) -Color (Shruthi-wound Skin Appearance) No Abnormality -Temperature (Shruthi-wound Skin No Abnormality Appearance) (Pt Warm) -Tenderness on Palpation (Shruthi-wound No Skin Appearance) -Ulcer Cleansing Rinsed/ Irrigated with Saline -Foul Odor after Cleansing No -Anesthetic Used 5% Lidocaine Gel WC - Nurse 2 - General Ulcer CM Notes Start: 04/17/18 09:51 Freq: Status: Active Protocol: Activity Type Activity Date Activity User E-Sign Co-Sign Detail Recorded Client Recorded Date Recorded By Document 05/08/18 08:37 [id number] 05/08/18 08:38 05/08/18 08:37 Wound Center Nurse 2 [Procedure/Treatment] -Time 08:37 -Correct Patient Yes -Correct Side, Site, Position Yes -Correct Procedure Yes -Procedure Performed Yes -Type of Procedure Debridement -Clinical Debridement Subcutaneous -Post Debridement Size (cm) - Length 1 -Post Debridement Size (cm) - Width 4 -Post Debridement Size (cm) - Depth 0.1 -Total Square Cm 4 -Wound/Ulcer Outcome Not Healed -Ulcer Cleansing Rinsed/ Irrigated with Saline -Foul Odor after Cleansing No -Bioengineered Tissue No -Bleeding Controlled with Pressure -Treatment Response Procedure Tolerated Well [See Physician Procedure note for Specifics] Pain Scale: 0-10 Numeric [Pain] -Is Patient Pain Free? Yes Musculoskeletal: No Tenderness to Palpation of Joints or Extremities Neurological: Neuro grossly intact Psych/Mental Status: Normal Affect, Appropriate Debridement Note Post-Debridement Measurements/Treatment - Nurse 2 - General Ulcer CM Notes Start: 04/17/18 09:51 Freq: Status: Active Protocol: Activity Type Activity Date Activity User E-Sign Co-Sign Detail Recorded Client Recorded Date Recorded By Document 04/17/18 10:40 [id number] 04/17/18 10:43 Document 04/24/18 10:05 [id number] 04/24/18 10:07 Document 05/01/18 11:07 [id number] 05/01/18 11:07 Document 05/08/18 08:37 [id number] 05/08/18 08:38 04/17/18 04/24/18 05/01/18 10:40 10:05 11:07 Wound Center Nurse 2 #2 RIGHT AXILLARY -Time 10:40 10:05 11:07 -Correct Patient Yes Yes Yes -Correct Side, Site, Position Yes Yes Yes -Correct Procedure Yes Yes Yes -Procedure Performed Yes Yes Yes -Type of Procedure Debridement Debridement Debridement -Clinical Debridement Subcutaneous Subcutaneous Subcutaneous -Post Debridement Size (cm) - Length 3.4 2.3 1.7 -Post Debridement Size (cm) - Width 8.7 7.3 5.3 -Post Debridement Size (cm) - Depth 0.2 0.1 0.1 -Total Square Cm 29.58 16.79 9.01 -Wound/Ulcer Outcome Not Healed Not Healed Not Healed -Ulcer Cleansing Rinsed/ Rinsed/ Rinsed/ Irrigated with Irrigated with Irrigated with Saline Saline Saline -Foul Odor after Cleansing No No No -Bioengineered Tissue No No No -Bleeding Controlled with Pressure Pressure Pressure -Treatment Response Procedure Procedure Procedure Tolerated Well Tolerated Well Tolerated Well Pain Scale: 0-10 Numeric Is Patient Pain Free? Yes Yes Yes 05/08/18 08:37 Wound Center Nurse 2 #2 RIGHT AXILLARY -Time 08:37 -Correct Patient Yes -Correct Side, Site, Position Yes -Correct Procedure Yes -Procedure Performed Yes -Type of Procedure Debridement -Clinical Debridement Subcutaneous -Post Debridement Size (cm) - Length 1 -Post Debridement Size (cm) - Width 4 -Post Debridement Size (cm) - Depth 0.1 -Total Square Cm 4 -Wound/Ulcer Outcome Not Healed -Ulcer Cleansing Rinsed/ Irrigated with Saline -Foul Odor after Cleansing No -Bioengineered Tissue No -Bleeding Controlled with Pressure -Treatment Response Procedure Tolerated Well Pain Scale: 0-10 Numeric Is Patient Pain Free? Yes Laterality: Right Type of Debridement: Excisional debridement Anesthesia Used: 4% Lidocaine Solution Depth: in the subcutaneous layer Percentage of wound debrided: 100 Instrument Used: 7mm curette Tissue Removed: Subcutaneous tissue and slough Severity: Fat Layer Exposed Amount of bleeding with debridement: Mild Bleeding Controlled with: Pressure Patient tolerated procedure well Assessment/Plan Active Problems (Last Updated 03/20/18 @ 02:47 by Joey Reyes MD) Open wound of right axillary region (Acute) Hidradenitis suppurativa (Chronic) 8 cm right axillary hidradenitis Assessment: 1. Nonhealing hidradenitis ulcer right axilla. 2. Right axillary hidradenitis. 3. History of MRSA. 4. Smoker. 5. s/p surgical preparation right axilla with excision hidradenitis (66 cm2). Plan: Continue Silver Alginate dressing changes daily. She returned to work last night with no issues. Her operative culture is negative. She has finished the Doxycycline. Her Prealbumin from 03/24/18 was 25.2. Encourage nutritional supplementation with protein to help the healing process. Encourage range of motion exercises to minimize stiffness. She does have good range of motion of right arm and shoulder. Encouraged patient to stop smoking as it may have deleterious effects on wound healing. Followup one week. Code Visit 111xxx-113xx: [id number] Leighann subq tissue 20 sq cm/<
[2018-05-15 08:12] VITALS: BP 112/78; PULSE 70; RESP 16; TEMP 36.3
--- NOTE | 2018-05-15 13:51 | PCM.WC.PN ---
(1) Open wound of right axillary region Status: Acute Current Visit: Yes Code(s): S41.101A - Unspecified open wound of right upper arm, initial encounter (2) Smoker Status: Chronic Current Visit: No Code(s): F17.200 - Nicotine dependence, unspecified, uncomplicated (3) Personal history of Methicillin resistant Staphylococcus aureus infection Status: Chronic Current Visit: No Code(s): Z86.14 - Personal history of Methicillin resistant Staphylococcus aureus infection (4) Hidradenitis suppurativa Status: Chronic Current Visit: Yes Code(s): L73.2 - Hidradenitis suppurativa Comment: 8 cm right axillary hidradenitis Type of Wound Date of Service: 05/15/18 Chief Complaint: Nonhealing hidradenitis ulcer right axilla. History of Wound: Surgery 03/23/18 - Surgical preparation right axilla with excision hidradenitis (66 cm2). Wound care - Siver with a VAC holiday. Operative culture - negative. She was placed on Doxycycline perioperatively and has finished them. Prealbumin from 03/24/18 was 25.2. Encourage nutritional supplementation with protein to help the healing process. Encourage range of motion exercises to minimize stiffness. Today she denies fever. Her appetite is good. Progress of Wound: Improved. - Physical Exam Vital Signs Temp Pulse Resp BP 97.3 F L 70 16 112/78 05/15/18 08:12 05/15/18 08:12 05/15/18 08:12 05/15/18 08:12 General: Alert, Oriented x3, Cooperative HEENT: Atraumatic Oral: Moist Mucosa Extremities: No edema, Capillary Refill Less than 3 Seconds Skin: Ulcer/ Wound - Right axillary wound. [place], and healing well. Wound Measurements and Assessment WC - Nurse 1 - General Ulcer Measurement Start: 04/17/18 09:51 Freq: Status: Active Protocol: Activity Type Activity Date Activity User E-Sign Co-Sign Detail Recorded Client Recorded Date Recorded By Document 05/15/18 08:12 OK [id number] 05/15/18 08:17 OK 05/15/18 08:12 Wound Center Nurse 1 [Ulcer Assessment] #2 RIGHT AXILLARY -Combined with other wound No -Current Size (cm) - Length 1 -Current Size (cm) - Width 2.9 -Current Size (cm) - Depth 0.1 -Total Square Cm 2.9 -Epithelialization Medium 34-66% -Tunneling No -Undermining/Tunneling No -Circular Undermining No -Granulation Amt Large (67-100%) -Granulation Quality Pale [place] -Necrosis Amt Small (1-33%) -Necrotic Tissue Type Adherent Slough -Texture (Shruthi-wound Skin Appearance) Assessed Scarring -Moisture (Shruthi-wound Skin Appearance Assessed ) Maceration -Color (Shruthi-wound Skin Appearance) Assessed Palor -Temperature (Shruthi-wound Skin No Abnormality Appearance) (Pt Warm) -Tenderness on Palpation (Shruthi-wound No Skin Appearance) -Ulcer Cleansing Rinsed/ Irrigated with Saline -Foul Odor after Cleansing No -Anesthetic Used 5% Lidocaine Gel WC - Nurse 2 - General Ulcer CM Notes Start: 04/17/18 09:51 Freq: Status: Active Protocol: Activity Type Activity Date Activity User E-Sign Co-Sign Detail Recorded Client Recorded Date Recorded By Document 05/15/18 08:39 [id number] 05/15/18 08:40 05/15/18 08:39 Wound Center Nurse 2 [Procedure/Treatment] -Time 08:40 -Correct Patient Yes -Correct Side, Site, Position Yes -Correct Procedure Yes -Procedure Performed Yes -Type of Procedure Debridement -Clinical Debridement Subcutaneous -Post Debridement Size (cm) - Length 1.6 -Post Debridement Size (cm) - Width 3 -Post Debridement Size (cm) - Depth 0.1 -Total Square Cm 4.8 -Wound/Ulcer Outcome Not Healed -Ulcer Cleansing Rinsed/ Irrigated with Saline -Foul Odor after Cleansing No -Bioengineered Tissue No -Bleeding Controlled with Pressure -Treatment Response Procedure Tolerated Well [See Physician Procedure note for Specifics] Pain Scale: 0-10 Numeric [Pain] -Is Patient Pain Free? Yes Musculoskeletal: No Tenderness to Palpation of Joints or Extremities Neurological: Cranial nerves II-XII grossly intact Psych/Mental Status: Normal Affect, Appropriate Debridement Note Post-Debridement Measurements/Treatment - Nurse 2 - General Ulcer CM Notes Start: 04/17/18 09:51 Freq: Status: Active Protocol: Activity Type Activity Date Activity User E-Sign Co-Sign Detail Recorded Client Recorded Date Recorded By Document 04/17/18 10:40 [id number] 04/17/18 10:43 Document 04/24/18 10:05 [id number] 04/24/18 10:07 Document 05/01/18 11:07 [id number] 05/01/18 11:07 Document 05/08/18 08:37 [id number] 05/08/18 08:38 Document 05/15/18 08:39 [id number] 05/15/18 08:40 04/17/18 04/24/18 05/01/18 10:40 10:05 11:07 Wound Center Nurse 2 #2 RIGHT AXILLARY -Time 10:40 10:05 11:07 -Correct Patient Yes Yes Yes -Correct Side, Site, Position Yes Yes Yes -Correct Procedure Yes Yes Yes -Procedure Performed Yes Yes Yes -Type of Procedure Debridement Debridement Debridement -Clinical Debridement Subcutaneous Subcutaneous Subcutaneous -Post Debridement Size (cm) - Length 3.4 2.3 1.7 -Post Debridement Size (cm) - Width 8.7 7.3 5.3 -Post Debridement Size (cm) - Depth 0.2 0.1 0.1 -Total Square Cm 29.58 16.79 9.01 -Wound/Ulcer Outcome Not Healed Not Healed Not Healed -Ulcer Cleansing Rinsed/ Rinsed/ Rinsed/ Irrigated with Irrigated with Irrigated with Saline Saline Saline -Foul Odor after Cleansing No No No -Bioengineered Tissue No No No -Bleeding Controlled with Pressure Pressure Pressure -Treatment Response Procedure Procedure Procedure Tolerated Well Tolerated Well Tolerated Well Pain Scale: 0-10 Numeric Is Patient Pain Free? Yes Yes Yes 05/08/18 05/15/18 08:37 08:39 Wound Center Nurse 2 #2 RIGHT AXILLARY -Time 08:37 08:40 -Correct Patient Yes Yes -Correct Side, Site, Position Yes Yes -Correct Procedure Yes Yes -Procedure Performed Yes Yes -Type of Procedure Debridement Debridement -Clinical Debridement Subcutaneous Subcutaneous -Post Debridement Size (cm) - Length 1 1.6 -Post Debridement Size (cm) - Width 4 3 -Post Debridement Size (cm) - Depth 0.1 0.1 -Total Square Cm 4 4.8 -Wound/Ulcer Outcome Not Healed Not Healed -Ulcer Cleansing Rinsed/ Rinsed/ Irrigated with Irrigated with Saline Saline -Foul Odor after Cleansing No No -Bioengineered Tissue No No -Bleeding Controlled with Pressure Pressure -Treatment Response Procedure Procedure Tolerated Well Tolerated Well Pain Scale: 0-10 Numeric Is Patient Pain Free? Yes Yes Wound debrided: Right Axilla Laterality: Right Type of Debridement: Excisional debridement Anesthesia Used: 4% Lidocaine Solution Depth: Down to and including healthy tissue, in the subcutaneous layer Percentage of wound debrided: 100 Instrument Used: 7mm curette Tissue Removed: Subucaneous tissue and slough Severity: Fat Layer Exposed Amount of bleeding with debridement: Mild Bleeding Controlled with: Pressure Patient tolerated procedure well Assessment/Plan Active Problems (Last Updated 03/20/18 @ 02:47 by Joey Reyes MD) Open wound of right axillary region (Acute) Hidradenitis suppurativa (Chronic) 8 cm right axillary hidradenitis Assessment: 1. Nonhealing hidradenitis ulcer right axilla. 2. Right axillary hidradenitis. 3. History of MRSA. 4. Smoker. 5. s/p surgical preparation right axilla with excision hidradenitis (66 cm2). Plan: Continue Silver Alginate dressing changes daily. She has been working for the past week with little difficulty. She has been having more pain since she has been back to work. Her operative culture is negative. She has finished the Doxycycline. Her Prealbumin from 03/24/18 was 25.2. Encourage nutritional supplementation with protein to help the healing process. Encourage range of motion exercises to minimize stiffness. She does have good range of motion of right arm and shoulder. Encouraged patient to stop smoking as it may have deleterious effects on wound healing. Followup one week. Code Visit 111xxx-113xx: [id number] Leighann subq tissue 20 sq cm/<
--- NOTE | 2018-05-16 13:55 | PN.PCM_ITS ---
(1) Open wound of right axillary region Status: Acute Current Visit: Yes Code(s): S41.101A - Unspecified open wound of right upper arm, initial encounter (2) Smoker Status: Chronic Current Visit: No Code(s): F17.200 - Nicotine dependence, unspecified, uncomplicated (3) Personal history of Methicillin resistant Staphylococcus aureus infection Status: Chronic Current Visit: No Code(s): Z86.14 - Personal history of Methicillin resistant Staphylococcus aureus infection (4) Hidradenitis suppurativa Status: Chronic Current Visit: Yes Code(s): L73.2 - Hidradenitis suppurativa Comment: 8 cm right axillary hidradenitis Type of Wound Date of Service: 05/15/18 Chief Complaint: Nonhealing hidradenitis ulcer right axilla. History of Wound: Surgery 03/23/18 - Surgical preparation right axilla with excision hidradenitis (66 cm2). Wound care - [place] with a VAC holiday. Operative culture - negative. She was placed on Doxycycline perioperatively and has finished them. Prealbumin from 03/24/18 was 25.2. Encourage nutritional supplementation with protein to help the healing process. Encourage range of motion exercises to minimize stiffness. Today she denies fever. Her appetite is good. Progress of Wound: Improved. - Physical Exam Vital Signs Temp Pulse Resp BP 97.3 F L 70 16 112/78 05/15/18 08:12 05/15/18 08:12 05/15/18 08:12 05/15/18 08:12 General: Alert, Oriented x3, Cooperative HEENT: Atraumatic Oral: Moist Mucosa Extremities: No edema, Capillary Refill Less than 3 Seconds Skin: Ulcer/ Wound - Right axillary wound. [place], and healing well. Wound Measurements and Assessment WC - Nurse 1 - General Ulcer Measurement Start: 04/17/18 09:51 Freq: Status: Active Protocol: Activity Type Activity Date Activity User E-Sign Co-Sign Detail Recorded Client Recorded Date Recorded By Document 05/15/18 08:12 NE [id number] 05/15/18 08:17 NE 05/15/18 08:12 Wound Center Nurse 1 [Ulcer Assessment] #2 RIGHT AXILLARY -Combined with other wound No -Current Size (cm) - Length 1 -Current Size (cm) - Width 2.9 -Current Size (cm) - Depth 0.1 -Total Square Cm 2.9 -Epithelialization Medium 34-66% -Tunneling No -Undermining/Tunneling No -Circular Undermining No -Granulation Amt Large (67-100%) -Granulation Quality Pale [place] -Necrosis Amt Small (1-33%) -Necrotic Tissue Type Adherent Slough -Texture (Shruthi-wound Skin Appearance) Assessed Scarring -Moisture (Shruthi-wound Skin Appearance Assessed ) Maceration -Color (Shruthi-wound Skin Appearance) Assessed Palor -Temperature (Shruthi-wound Skin No Abnormality Appearance) (Pt Warm) -Tenderness on Palpation (Shruthi-wound No Skin Appearance) -Ulcer Cleansing Rinsed/ Irrigated with Saline -Foul Odor after Cleansing No -Anesthetic Used 5% Lidocaine Gel WC - Nurse 2 - General Ulcer CM Notes Start: 04/17/18 09:51 Freq: Status: Active Protocol: Activity Type Activity Date Activity User E-Sign Co-Sign Detail Recorded Client Recorded Date Recorded By Document 05/15/18 08:39 [id number] 05/15/18 08:40 05/15/18 08:39 Wound Center Nurse 2 [Procedure/Treatment] -Time 08:40 -Correct Patient Yes -Correct Side, Site, Position Yes -Correct Procedure Yes -Procedure Performed Yes -Type of Procedure Debridement -Clinical Debridement Subcutaneous -Post Debridement Size (cm) - Length 1.6 -Post Debridement Size (cm) - Width 3 -Post Debridement Size (cm) - Depth 0.1 -Total Square Cm 4.8 -Wound/Ulcer Outcome Not Healed -Ulcer Cleansing Rinsed/ Irrigated with Saline -Foul Odor after Cleansing No -Bioengineered Tissue No -Bleeding Controlled with Pressure -Treatment Response Procedure Tolerated Well [See Physician Procedure note for Specifics] Pain Scale: 0-10 Numeric [Pain] -Is Patient Pain Free? Yes Musculoskeletal: No Tenderness to Palpation of Joints or Extremities Neurological: Cranial nerves II-XII grossly intact Psych/Mental Status: Normal Affect, Appropriate Debridement Note Post-Debridement Measurements/Treatment - Nurse 2 - General Ulcer CM Notes Start: 04/17/18 09:51 Freq: Status: Active Protocol: Activity Type Activity Date Activity User E-Sign Co-Sign Detail Recorded Client Recorded Date Recorded By Document 04/17/18 10:40 [id number] 04/17/18 10:43 Document 04/24/18 10:05 [id number] 04/24/18 10:07 Document 05/01/18 11:07 [id number] 05/01/18 11:07 Document 05/08/18 08:37 [id number] 05/08/18 08:38 Document 05/15/18 08:39 [id number] 05/15/18 08:40 04/17/18 04/24/18 05/01/18 10:40 10:05 11:07 Wound Center Nurse 2 #2 RIGHT AXILLARY -Time 10:40 10:05 11:07 -Correct Patient Yes Yes Yes -Correct Side, Site, Position Yes Yes Yes -Correct Procedure Yes Yes Yes -Procedure Performed Yes Yes Yes -Type of Procedure Debridement Debridement Debridement -Clinical Debridement Subcutaneous Subcutaneous Subcutaneous -Post Debridement Size (cm) - Length 3.4 2.3 1.7 -Post Debridement Size (cm) - Width 8.7 7.3 5.3 -Post Debridement Size (cm) - Depth 0.2 0.1 0.1 -Total Square Cm 29.58 16.79 9.01 -Wound/Ulcer Outcome Not Healed Not Healed Not Healed -Ulcer Cleansing Rinsed/ Rinsed/ Rinsed/ Irrigated with Irrigated with Irrigated with Saline Saline Saline -Foul Odor after Cleansing No No No -Bioengineered Tissue No No No -Bleeding Controlled with Pressure Pressure Pressure -Treatment Response Procedure Procedure Procedure Tolerated Well Tolerated Well Tolerated Well Pain Scale: 0-10 Numeric Is Patient Pain Free? Yes Yes Yes 05/08/18 05/15/18 08:37 08:39 Wound Center Nurse 2 #2 RIGHT AXILLARY -Time 08:37 08:40 -Correct Patient Yes Yes -Correct Side, Site, Position Yes Yes -Correct Procedure Yes Yes -Procedure Performed Yes Yes -Type of Procedure Debridement Debridement -Clinical Debridement Subcutaneous Subcutaneous -Post Debridement Size (cm) - Length 1 1.6 -Post Debridement Size (cm) - Width 4 3 -Post Debridement Size (cm) - Depth 0.1 0.1 -Total Square Cm 4 4.8 -Wound/Ulcer Outcome Not Healed Not Healed -Ulcer Cleansing Rinsed/ Rinsed/ Irrigated with Irrigated with Saline Saline -Foul Odor after Cleansing No No -Bioengineered Tissue No No -Bleeding Controlled with Pressure Pressure -Treatment Response Procedure Procedure Tolerated Well Tolerated Well Pain Scale: 0-10 Numeric Is Patient Pain Free? Yes Yes Wound debrided: Right Axilla Laterality: Right Type of Debridement: Excisional debridement Anesthesia Used: 4% Lidocaine Solution Depth: Down to and including healthy tissue, in the subcutaneous layer Percentage of wound debrided: 100 Instrument Used: 7mm curette Tissue Removed: Subucaneous tissue and slough Severity: Fat Layer Exposed Amount of bleeding with debridement: Mild Bleeding Controlled with: Pressure Patient tolerated procedure well Assessment/Plan Active Problems (Last Updated 03/20/18 @ 02:47 by Joey Reyes MD) Open wound of right axillary region (Acute) Hidradenitis suppurativa (Chronic) 8 cm right axillary hidradenitis Assessment: 1. Nonhealing hidradenitis ulcer right axilla. 2. Right axillary hidradenitis. 3. History of MRSA. 4. Smoker. 5. s/p surgical preparation right axilla with excision hidradenitis (66 cm2). Plan: Continue Silver Alginate dressing changes daily. She has been working for the past week with little difficulty. She has been having more pain since she has been back to work. Her operative culture is negative. She has finished the Doxycycline. Her Prealbumin from 03/24/18 was 25.2. Encourage nutritional supplementation with protein to help the healing process. Encourage range of motion exercises to minimize stiffness. She does have good range of motion of right arm and shoulder. Encouraged patient to stop smoking as it may have deleterious effects on wound healing. Followup one week. Code Visit 111xxx-113xx: [id number] Leighann subq tissue 20 sq cm/<
== END 2018-05-17 23:59 ==
LOC: WC 08:00
PROVIDERS: Family Provider Family Medicine; PCP Family Medicine; Visit Provider Surgery
DX: L73.2 Hidradenitis suppurativa (principal); F17.200 Nicotine dependence, unspecified, uncomplicated; Z86.14 Personal history of Methicillin resistant Staphylococcus aureus infection; T81.89XA Other complications of procedures, not elsewhere classified, initial encounter; Y83.8 Other surgical procedures as the cause of abnormal reaction of the patient, or of later complication, without mention of misadventure at the time of the procedure
CPT/HCPCS: 11042; 11045

== ENCOUNTER 2018-06-12 08:00 | Outpatient (RCR) | payer MEDICAID, SELFPAY ==
[2018-05-18 01:30] VITALS: BP 112/78; PULSE 70; RESP 16; TEMP 36.3
[2018-05-22 08:11] VITALS: BP 124/73; PULSE 73; RESP 18; TEMP 36.2
--- NOTE | 2018-05-22 09:00 | PCM.WC.PN ---
(1) Open wound of right axillary region Status: Acute Current Visit: Yes Code(s): S41.101A - Unspecified open wound of right upper arm, initial encounter (2) Hidradenitis suppurativa Status: Chronic Current Visit: Yes Code(s): L73.2 - Hidradenitis suppurativa Comment: 8 cm right axillary hidradenitis (3) Smoker Status: Chronic Current Visit: Yes Code(s): F17.200 - Nicotine dependence, unspecified, uncomplicated (4) Personal history of Methicillin resistant Staphylococcus aureus infection Status: Chronic Current Visit: No Code(s): Z86.14 - Personal history of Methicillin resistant Staphylococcus aureus infection Type of Wound Date of Service: 05/22/18 Chief Complaint: Nonhealing hidradenitis ulcer right axilla. History of Wound: Surgery 03/23/18 - Surgical preparation right axilla with excision hidradenitis (66 cm2). Wound care - Siver with a VAC holiday. Operative culture - negative. She was placed on Doxycycline perioperatively and has finished them. Prealbumin from 03/24/18 was 25.2. Encourage nutritional supplementation with protein to help the healing process. Encourage range of motion exercises to minimize stiffness. Today she denies fever. Her appetite is good. Progress of Wound: Improved. - Physical Exam Vital Signs Temp Pulse Resp BP 97.1 F L 73 18 124/73 H 05/22/18 08:11 05/22/18 08:11 05/22/18 08:11 05/22/18 08:11 General: Alert, Oriented x3, Cooperative HEENT: Atraumatic, PERRLA Oral: Moist Mucosa Lungs: Normal air movement Cardiovascular: Regular rate Extremities: No edema Skin: Ulcer/ Wound - Right axilla Wound Measurements and Assessment WC - Nurse 1 - General Ulcer Measurement Start: 05/22/18 08:11 Freq: Status: Active Protocol: Activity Type Activity Date Activity User E-Sign Co-Sign Detail Recorded Client Recorded Date Recorded By Document 05/22/18 08:11 DL [id number] 05/22/18 08:17 DL 05/22/18 08:11 Wound Center Nurse 1 [Ulcer Assessment] #2 RIGHT AXILLARY -Current Size (cm) - Length 0.7 -Current Size (cm) - Width 2.2 -Current Size (cm) - Depth 0.1 -Total Square Cm 1.54 -Photo Taken No -Exudate Amt Small (1-33%) -Exudate Type Serosanguineous -Wound Margin Distinct, Outline Attached -Granulation Amt Medium (34-66%) -Granulation Quality [place] -Necrosis Amt Small (1-33%) -Necrotic Tissue Type Adherent Slough -Structure Exposed N/A -Texture (Shruthi-wound Skin Appearance) Scarring -Moisture (Shruthi-wound Skin Appearance No Abnormality ) -Color (Shruthi-wound Skin Appearance) No Abnormality -Temperature (Shruthi-wound Skin No Abnormality Appearance) (Pt Warm) -Ulcer Cleansing Rinsed/ Irrigated with Saline -Foul Odor after Cleansing No -Anesthetic Used 4% Lidocaine Solution - Nurse 2 - General Ulcer CM Notes Start: 05/22/18 08:11 Freq: Status: Active Protocol: Activity Type Activity Date Activity User E-Sign Co-Sign Detail Recorded Client Recorded Date Recorded By Document 05/22/18 08:25 [id number] 05/22/18 08:26 05/22/18 08:25 Wound Center Nurse 2 [Procedure/Treatment] -Time 08:25 -Correct Patient Yes -Correct Side, Site, Position Yes -Correct Procedure Yes -Procedure Performed Yes -Type of Procedure Debridement -Clinical Debridement Subcutaneous -Post Debridement Size (cm) - Length 1.3 -Post Debridement Size (cm) - Width 2.8 -Post Debridement Size (cm) - Depth 0.1 -Total Square Cm 3.64 -Wound/Ulcer Outcome Not Healed -Ulcer Cleansing Rinsed/ Irrigated with Saline -Foul Odor after Cleansing No -Bioengineered Tissue No -Bleeding Controlled with Pressure -Treatment Response Procedure Tolerated Well [See Physician Procedure note for Specifics] Pain Scale: 0-10 Numeric [Pain] -Is Patient Pain Free? Yes Musculoskeletal: No Tenderness to Palpation of Joints or Extremities, No Muscle Wasting Neurological: Neuro grossly intact Psych/Mental Status: Normal Affect, Appropriate Debridement Note Post-Debridement Measurements/Treatment - Nurse 2 - General Ulcer CM Notes Start: 05/22/18 08:11 Freq: Status: Active Protocol: Activity Type Activity Date Activity User E-Sign Co-Sign Detail Recorded Client Recorded Date Recorded By Document 05/22/18 08:25 [email or web address] [id number] 05/22/18 08:26 05/22/18 08:25 Wound Center Nurse 2 #2 RIGHT AXILLARY -Time 08:25 -Correct Patient Yes -Correct Side, Site, Position Yes -Correct Procedure Yes -Procedure Performed Yes -Type of Procedure Debridement -Clinical Debridement Subcutaneous -Post Debridement Size (cm) - Length 1.3 -Post Debridement Size (cm) - Width 2.8 -Post Debridement Size (cm) - Depth 0.1 -Total Square Cm 3.64 -Wound/Ulcer Outcome Not Healed -Ulcer Cleansing Rinsed/ Irrigated with Saline -Foul Odor after Cleansing No -Bioengineered Tissue No -Bleeding Controlled with Pressure -Treatment Response Procedure Tolerated Well Pain Scale: 0-10 Numeric Is Patient Pain Free? Yes Wound debrided: Right axilla Laterality: Right Type of Debridement: Excisional debridement Anesthesia Used: 4% Lidocaine Solution Depth: in the subcutaneous layer Percentage of wound debrided: 100 Instrument Used: 3mm curette Tissue Removed: Subcutaneous tissue and slough Severity: Fat Layer Exposed Amount of bleeding with debridement: Mild Bleeding Controlled with: Pressure Patient tolerated procedure well Assessment/Plan Active Problems (Last Updated 03/20/18 @ 02:47 by Joey Reyes MD) Open wound of right axillary region (Acute) Smoker (Chronic) Hidradenitis suppurativa (Chronic) 8 cm right axillary hidradenitis Assessment: 1. Nonhealing hidradenitis ulcer right axilla. 2. Right axillary hidradenitis. 3. History of MRSA. 4. Smoker. 5. s/p surgical preparation right axilla with excision hidradenitis (66 cm2). Plan: Continue Silver Alginate dressing changes daily. She is back to work with little difficulty. She states she is not having much pain. She has been massaging around her wound to help soften the scar tissue and she states that she feels that is helping with the tightness. Her operative culture is negative. She has finished the Doxycycline. Her Prealbumin from 03/24/18 was 25.2. Encourage nutritional supplementation with protein to help the healing process. Encourage range of motion exercises to minimize stiffness. She does have good range of motion of right arm and shoulder. Encouraged patient to stop smoking as it may have deleterious effects on wound healing. Followup one week. Code Visit [id number]: [id number] Leighann subq tissue 20 sq cm/<
--- NOTE | 2018-05-22 09:05 | PN.PCM_ITS ---
(1) Open wound of right axillary region Status: Acute Current Visit: Yes Code(s): S41.101A - Unspecified open wound of right upper arm, initial encounter (2) Hidradenitis suppurativa Status: Chronic Current Visit: Yes Code(s): L73.2 - Hidradenitis suppurativa Comment: 8 cm right axillary hidradenitis (3) Smoker Status: Chronic Current Visit: Yes Code(s): F17.200 - Nicotine dependence, unspecified, uncomplicated (4) Personal history of Methicillin resistant Staphylococcus aureus infection Status: Chronic Current Visit: No Code(s): Z86.14 - Personal history of Methicillin resistant Staphylococcus aureus infection Type of Wound Date of Service: 05/22/18 Chief Complaint: Nonhealing hidradenitis ulcer right axilla. History of Wound: Surgery 03/23/18 - Surgical preparation right axilla with excision hidradenitis (66 cm2). Wound care - Siver with a VAC holiday. Operative culture - negative. She was placed on Doxycycline perioperatively and has finished them. Prealbumin from 03/24/18 was 25.2. Encourage nutritional supplementation with protein to help the healing process. Encourage range of motion exercises to minimize stiffness. Today she denies fever. Her appetite is good. Progress of Wound: Improved. - Physical Exam Vital Signs Temp Pulse Resp BP 97.1 F L 73 18 124/73 H 05/22/18 08:11 05/22/18 08:11 05/22/18 08:11 05/22/18 08:11 General: Alert, Oriented x3, Cooperative HEENT: Atraumatic, PERRLA Oral: Moist Mucosa Lungs: Normal air movement Cardiovascular: Regular rate Extremities: No edema Skin: Ulcer/ Wound - Right axilla Wound Measurements and Assessment WC - Nurse 1 - General Ulcer Measurement Start: 05/22/18 08:11 Freq: Status: Active Protocol: Activity Type Activity Date Activity User E-Sign Co-Sign Detail Recorded Client Recorded Date Recorded By Document 05/22/18 08:11 DL [id number] 05/22/18 08:17 DL 05/22/18 08:11 Wound Center Nurse 1 [Ulcer Assessment] #2 RIGHT AXILLARY -Current Size (cm) - Length 0.7 -Current Size (cm) - Width 2.2 -Current Size (cm) - Depth 0.1 -Total Square Cm 1.54 -Photo Taken No -Exudate Amt Small (1-33%) -Exudate Type Serosanguineous -Wound Margin Distinct, Outline Attached -Granulation Amt Medium (34-66%) -Granulation Quality [place] -Necrosis Amt Small (1-33%) -Necrotic Tissue Type Adherent Slough -Structure Exposed N/A -Texture (Shruthi-wound Skin Appearance) Scarring -Moisture (Shruthi-wound Skin Appearance No Abnormality ) -Color (Shruthi-wound Skin Appearance) No Abnormality -Temperature (Shruthi-wound Skin No Abnormality Appearance) (Pt Warm) -Ulcer Cleansing Rinsed/ Irrigated with Saline -Foul Odor after Cleansing No -Anesthetic Used 4% Lidocaine Solution - Nurse 2 - General Ulcer CM Notes Start: 05/22/18 08:11 Freq: Status: Active Protocol: Activity Type Activity Date Activity User E-Sign Co-Sign Detail Recorded Client Recorded Date Recorded By Document 05/22/18 08:25 [id number] 05/22/18 08:26 05/22/18 08:25 Wound Center Nurse 2 [Procedure/Treatment] -Time 08:25 -Correct Patient Yes -Correct Side, Site, Position Yes -Correct Procedure Yes -Procedure Performed Yes -Type of Procedure Debridement -Clinical Debridement Subcutaneous -Post Debridement Size (cm) - Length 1.3 -Post Debridement Size (cm) - Width 2.8 -Post Debridement Size (cm) - Depth 0.1 -Total Square Cm 3.64 -Wound/Ulcer Outcome Not Healed -Ulcer Cleansing Rinsed/ Irrigated with Saline -Foul Odor after Cleansing No -Bioengineered Tissue No -Bleeding Controlled with Pressure -Treatment Response Procedure Tolerated Well [See Physician Procedure note for Specifics] Pain Scale: 0-10 Numeric [Pain] -Is Patient Pain Free? Yes Musculoskeletal: No Tenderness to Palpation of Joints or Extremities, No Muscle Wasting Neurological: Neuro grossly intact Psych/Mental Status: Normal Affect, Appropriate Debridement Note Post-Debridement Measurements/Treatment - Nurse 2 - General Ulcer CM Notes Start: 05/22/18 08:11 Freq: Status: Active Protocol: Activity Type Activity Date Activity User E-Sign Co-Sign Detail Recorded Client Recorded Date Recorded By Document 05/22/18 08:25 [email or web address] [id number] 05/22/18 08:26 05/22/18 08:25 Wound Center Nurse 2 #2 RIGHT AXILLARY -Time 08:25 -Correct Patient Yes -Correct Side, Site, Position Yes -Correct Procedure Yes -Procedure Performed Yes -Type of Procedure Debridement -Clinical Debridement Subcutaneous -Post Debridement Size (cm) - Length 1.3 -Post Debridement Size (cm) - Width 2.8 -Post Debridement Size (cm) - Depth 0.1 -Total Square Cm 3.64 -Wound/Ulcer Outcome Not Healed -Ulcer Cleansing Rinsed/ Irrigated with Saline -Foul Odor after Cleansing No -Bioengineered Tissue No -Bleeding Controlled with Pressure -Treatment Response Procedure Tolerated Well Pain Scale: 0-10 Numeric Is Patient Pain Free? Yes Wound debrided: Right axilla Laterality: Right Type of Debridement: Excisional debridement Anesthesia Used: 4% Lidocaine Solution Depth: in the subcutaneous layer Percentage of wound debrided: 100 Instrument Used: 3mm curette Tissue Removed: Subcutaneous tissue and slough Severity: Fat Layer Exposed Amount of bleeding with debridement: Mild Bleeding Controlled with: Pressure Patient tolerated procedure well Assessment/Plan Active Problems (Last Updated 03/20/18 @ 02:47 by Joey Reyes MD) Open wound of right axillary region (Acute) Smoker (Chronic) Hidradenitis suppurativa (Chronic) 8 cm right axillary hidradenitis Assessment: 1. Nonhealing hidradenitis ulcer right axilla. 2. Right axillary hidradenitis. 3. History of MRSA. 4. Smoker. 5. s/p surgical preparation right axilla with excision hidradenitis (66 cm2). Plan: Continue Silver Alginate dressing changes daily. She is back to work with little difficulty. She states she is not having much pain. She has been massaging around her wound to help soften the scar tissue and she states that she feels that is helping with the tightness. Her operative culture is negative. She has finished the Doxycycline. Her Prealbumin from 03/24/18 was 25.2. Encourage nutritional supplementation with protein to help the healing process. Encourage range of motion exercises to minimize stiffness. She does have good range of motion of right arm and shoulder. Encouraged patient to stop smoking as it may have deleterious effects on wound healing. Followup one week. Code Visit 111xxx-113xx: [id number] Leighann subq tissue 20 sq cm/<
[2018-05-29 08:11] VITALS: BP 141/78; PULSE 78; RESP 16; TEMP 36.4
--- NOTE | 2018-05-29 15:53 | PCM.WC.PN ---
Type of Wound Date of Service: 05/29/18 Chief Complaint: Nonhealing hidradenitis ulcer right axilla. History of Wound: Surgery 03/23/18 - Surgical preparation right axilla with excision hidradenitis (66 cm2). Wound care - Silver. Operative culture - negative. She was placed on Doxycycline perioperatively and has finished them. Prealbumin from 03/24/18 was 25.2. Encourage nutritional supplementation with protein to help the healing process. Encourage range of motion exercises to minimize stiffness. Today she denies fever. Her appetite is good. She has returned back to work and is doing ok. Progress of Wound: Improved. - Physical Exam Vital Signs Temp Pulse Resp BP 97.5 F L 78 16 141/78 H 05/29/18 08:11 05/29/18 08:11 05/29/18 08:11 05/29/18 08:11 Wound Measurements and Assessment WC - Nurse 1 - General Ulcer Measurement Start: 05/22/18 08:11 Freq: Status: Active Protocol: Activity Type Activity Date Activity User E-Sign Co-Sign Detail Recorded Client Recorded Date Recorded By Document 05/29/18 08:11 [id number] 05/29/18 08:12 [email or web address] 05/29/18 08:11 Wound Center Nurse 1 [Ulcer Assessment] #2 RIGHT AXILLARY -Combined with other wound No -Current Size (cm) - Length 0.8 -Current Size (cm) - Width 1.6 -Current Size (cm) - Depth 0.2 -Total Square Cm 1.28 -Photo Taken Yes -Epithelialization Medium 34-66% -Tunneling No -Undermining/Tunneling No -Circular Undermining No -Exudate Amt Small (1-33%) -Exudate Type Serosanguineous -Wound Margin Flat & Intact -Granulation Amt Large (67-100%) -Granulation Quality Red -Slough/Fibrin Yes -Necrosis Amt Small (1-33%) -Necrotic Tissue Type Adherent Slough -Structure Exposed N/A -Texture (Shruthi-wound Skin Appearance) Assessed Scarring -Moisture (Shruthi-wound Skin Appearance Assessed ) Dry/Scaly -Color (Shruthi-wound Skin Appearance) Assessed -Temperature (Shruthi-wound Skin No Abnormality Appearance) (Pt Warm) -Tenderness on Palpation (Shruthi-wound No Skin Appearance) -Ulcer Cleansing Wound Cleanser -Foul Odor after Cleansing No -Anesthetic Used 5% Lidocaine Gel [Edema Assessment] -Lower Limb Edema Present NA - Nurse 2 - General Ulcer CM Notes Start: 05/22/18 08:11 Freq: Status: Active Protocol: Activity Type Activity Date Activity User E-Sign Co-Sign Detail Recorded Client Recorded Date Recorded By Document 05/29/18 08:47 [id number] 05/29/18 08:48 05/29/18 08:47 Wound Center Nurse 2 [Procedure/Treatment] #2 RIGHT AXILLARY -Time 08:48 -Correct Patient Yes -Correct Side, Site, Position Yes -Correct Procedure Yes -Procedure Performed Yes -Type of Procedure Debridement -Clinical Debridement Subcutaneous -Post Debridement Size (cm) - Length 0.8 -Post Debridement Size (cm) - Width 1.7 -Post Debridement Size (cm) - Depth 0.2 -Total Square Cm 1.36 -Wound/Ulcer Outcome Not Healed -Ulcer Cleansing Rinsed/ Irrigated with Saline -Foul Odor after Cleansing No -Bioengineered Tissue No -Bleeding Controlled with Pressure -Treatment Response Procedure Tolerated Well [See Physician Procedure note for Specifics] Pain Scale: 0-10 Numeric [Pain] -Is Patient Pain Free? Yes Debridement Note Post-Debridement Measurements/Treatment - Nurse 2 - General Ulcer CM Notes Start: 05/22/18 08:11 Freq: Status: Active Protocol: Activity Type Activity Date Activity User E-Sign Co-Sign Detail Recorded Client Recorded Date Recorded By Document 05/22/18 08:25 [id number] 05/22/18 08:26 Document 05/29/18 08:47 [id number] 05/29/18 08:48 05/22/18 05/29/18 08:25 08:47 Wound Center Nurse 2 #2 RIGHT AXILLARY -Time 08:25 08:48 -Correct Patient Yes Yes -Correct Side, Site, Position Yes Yes -Correct Procedure Yes Yes -Procedure Performed Yes Yes -Type of Procedure Debridement Debridement -Clinical Debridement Subcutaneous Subcutaneous -Post Debridement Size (cm) - Length 1.3 0.8 -Post Debridement Size (cm) - Width 2.8 1.7 -Post Debridement Size (cm) - Depth 0.1 0.2 -Total Square Cm 3.64 1.36 -Wound/Ulcer Outcome Not Healed Not Healed -Ulcer Cleansing Rinsed/ Rinsed/ Irrigated with Irrigated with Saline Saline -Foul Odor after Cleansing No No -Bioengineered Tissue No No -Bleeding Controlled with Pressure Pressure -Treatment Response Procedure Procedure Tolerated Well Tolerated Well Pain Scale: 0-10 Numeric Is Patient Pain Free? Yes Yes Wound debrided: #2 Right axilla. Laterality: Right Wound Grade/Stage: 2. Type of Debridement: Excisional debridement Anesthesia Used: 4% Lidocaine Solution Depth: Down to and including healthy tissue, in the subcutaneous layer Percentage of wound debrided: 100 Instrument Used: 3mm curette Tissue Removed: subcutaneous tissue. Severity: Fat Layer Exposed Amount of bleeding with debridement: Mild Bleeding Controlled with: Pressure Patient tolerated procedure well Assessment/Plan Assessment: 1. Nonhealing hidradenitis ulcer right axilla. 2. Right axillary hidradenitis. 3. History of MRSA. 4. Smoker. 5. s/p surgical preparation right axilla with excision hidradenitis (66 cm2). Plan: Continue Silver dressing changes daily. Debridement was painful today. She states she uses Ibuprofen for pain but sometimes it is not effective. So for those times of increased pain especially since she is back to work, I wrote a script for Percocet for pain (20 tabs). Her operative culture is negative. She has finished the Doxycycline. Her Prealbumin from 03/24/18 was 25.2. Encourage nutritional supplementation with protein to help the healing process. Encourage range of motion exercises to minimize stiffness. Encouraged patient to stop smoking as it may have deleterious effects on wound healing. Followup one week to see Tiffanie Nurse Practitioner. Followup 2 weeks to see me. She has returned to work and is doing ok.
[2018-06-05 08:12] VITALS: BP 125/80; PULSE 76; RESP 18; TEMP 36.5
--- NOTE | 2018-06-05 15:05 | PCM.WC.PN ---
(1) Open wound of right axillary region Status: Acute Current Visit: Yes Code(s): S41.101A - Unspecified open wound of right upper arm, initial encounter (2) Hidradenitis suppurativa Status: Chronic Current Visit: Yes Code(s): L73.2 - Hidradenitis suppurativa Comment: 8 cm right axillary hidradenitis (3) Smoker Status: Chronic Current Visit: Yes Code(s): F17.200 - Nicotine dependence, unspecified, uncomplicated (4) Personal history of Methicillin resistant Staphylococcus aureus infection Status: Chronic Current Visit: No Code(s): Z86.14 - Personal history of Methicillin resistant Staphylococcus aureus infection Type of Wound Date of Service: 06/05/18 Chief Complaint: Nonhealing hidradenitis ulcer right axilla. History of Wound: Surgery 03/23/18 - Surgical preparation right axilla with excision hidradenitis (66 cm2). Wound care - Silver. Operative culture - negative. She was placed on Doxycycline perioperatively and has finished them. Prealbumin from 03/24/18 was 25.2. Encourage nutritional supplementation with protein to help the healing process. Encourage range of motion exercises to minimize stiffness. Today she denies fever. Her appetite is good. She has returned back to work and is doing ok. Progress of Wound: Improved. - Physical Exam Vital Signs Temp Pulse Resp BP 97.7 F L 76 18 125/80 H 06/05/18 08:12 06/05/18 08:12 06/05/18 08:12 06/05/18 08:12 General: Alert, Oriented x3, Cooperative HEENT: Atraumatic Oral: Moist Mucosa Extremities: No edema, Capillary Refill Less than 3 Seconds Skin: Ulcer/ Wound - Right axilla wound which is getting smaller. Wound Measurements and Assessment WC - Nurse 1 - General Ulcer Measurement Start: 05/22/18 08:11 Freq: Status: Active Protocol: Activity Type Activity Date Activity User E-Sign Co-Sign Detail Recorded Client Recorded Date Recorded By Document 06/05/18 08:12 DL [id number] 06/05/18 08:16 DL 06/05/18 08:12 Wound Center Nurse 1 [Ulcer Assessment] #2 RIGHT AXILLARY -Current Size (cm) - Length 0.5 -Current Size (cm) - Width 0.6 -Current Size (cm) - Depth 0.1 -Total Square Cm 0.30 -Photo Taken No -Exudate Amt None Present (0 %) -Exudate Type Serosanguineous -Wound Margin Distinct, Outline Attached -Granulation Amt Large (67-100%) -Granulation Quality Pale [place] -Necrosis Amt None Present (0 %) -Structure Exposed N/A -Texture (Shruthi-wound Skin Appearance) Scarring -Moisture (Shruthi-wound Skin Appearance No Abnormality ) -Color (Shruthi-wound Skin Appearance) No Abnormality -Temperature (Shruthi-wound Skin No Abnormality Appearance) (Pt Warm) -Tenderness on Palpation (Shruthi-wound No Skin Appearance) -Ulcer Cleansing Rinsed/ Irrigated with Saline -Foul Odor after Cleansing No -Anesthetic Used 4% Lidocaine Solution - Nurse 2 - General Ulcer CM Notes Start: 05/22/18 08:11 Freq: Status: Active Protocol: Activity Type Activity Date Activity User E-Sign Co-Sign Detail Recorded Client Recorded Date Recorded By Document 06/05/18 08:38 [id number] 06/05/18 08:39 06/05/18 08:38 Wound Center Nurse 2 [Procedure/Treatment] -Time 08:38 -Correct Patient Yes -Correct Side, Site, Position Yes -Correct Procedure Yes -Procedure Performed Yes -Type of Procedure Debridement -Clinical Debridement Subcutaneous -Post Debridement Size (cm) - Length 0.6 -Post Debridement Size (cm) - Width 0.9 -Post Debridement Size (cm) - Depth 0.1 -Total Square Cm 0.54 -Wound/Ulcer Outcome Not Healed -Ulcer Cleansing Rinsed/ Irrigated with Saline -Foul Odor after Cleansing No -Bioengineered Tissue No -Bleeding Controlled with Pressure -Treatment Response Procedure Tolerated Well [See Physician Procedure note for Specifics] Pain Scale: 0-10 Numeric [Pain] -Is Patient Pain Free? Yes Musculoskeletal: No Tenderness to Palpation of Joints or Extremities Neurological: Neuro grossly intact Psych/Mental Status: Normal Affect, Appropriate Debridement Note Post-Debridement Measurements/Treatment - Nurse 2 - General Ulcer CM Notes Start: 05/22/18 08:11 Freq: Status: Active Protocol: Activity Type Activity Date Activity User E-Sign Co-Sign Detail Recorded Client Recorded Date Recorded By Document 05/22/18 08:25 [id number] 05/22/18 08:26 Document 05/29/18 08:47 [id number] 05/29/18 08:48 Document 06/05/18 08:38 JF [id number] 06/05/18 08:39 JF 05/22/18 05/29/18 06/05/18 08:25 08:47 08:38 Wound Center Nurse 2 #2 RIGHT AXILLARY -Time 08:25 08:48 08:38 -Correct Patient Yes Yes Yes -Correct Side, Site, Position Yes Yes Yes -Correct Procedure Yes Yes Yes -Procedure Performed Yes Yes Yes -Type of Procedure Debridement Debridement Debridement -Clinical Debridement Subcutaneous Subcutaneous Subcutaneous -Post Debridement Size (cm) - Length 1.3 0.8 0.6 -Post Debridement Size (cm) - Width 2.8 1.7 0.9 -Post Debridement Size (cm) - Depth 0.1 0.2 0.1 -Total Square Cm 3.64 1.36 0.54 -Wound/Ulcer Outcome Not Healed Not Healed Not Healed -Ulcer Cleansing Rinsed/ Rinsed/ Rinsed/ Irrigated with Irrigated with Irrigated with Saline Saline Saline -Foul Odor after Cleansing No No No -Bioengineered Tissue No No No -Bleeding Controlled with Pressure Pressure Pressure -Treatment Response Procedure Procedure Procedure Tolerated Well Tolerated Well Tolerated Well Pain Scale: 0-10 Numeric Is Patient Pain Free? Yes Yes Yes Wound debrided: Right axilla Laterality: Right Type of Debridement: Excisional debridement Anesthesia Used: 4% Lidocaine Solution Depth: Down to and including healthy tissue, in the subcutaneous layer Percentage of wound debrided: 100 Instrument Used: 3mm curette Tissue Removed: Subcutaneous tissue and slough Severity: Limited To Skin Breakdown Amount of bleeding with debridement: Mild Bleeding Controlled with: Pressure Patient tolerated procedure well Assessment/Plan Active Problems (Last Updated 03/20/18 @ 02:47 by Joey Reyes MD) Open wound of right axillary region (Acute) Smoker (Chronic) Hidradenitis suppurativa (Chronic) 8 cm right axillary hidradenitis Assessment: 1. Nonhealing hidradenitis ulcer right axilla. 2. Right axillary hidradenitis. 3. History of MRSA. 4. Smoker. 5. s/p surgical preparation right axilla with excision hidradenitis (66 cm2). Plan: Continue Silver dressing changes daily. Her operative culture is negative. She has finished the Doxycycline. Her Prealbumin from 03/24/18 was 25.2. Encourage nutritional supplementation with protein to help the healing process. Encourage range of motion exercises to minimize stiffness. Encouraged patient to stop smoking as it may have deleterious effects on wound healing. Followup [address] Reyes. She has returned to work and is doing ok.
[2018-06-12 08:11] VITALS: BP 141/78; PULSE 73; RESP 18; TEMP 37
--- NOTE | 2018-06-12 21:55 | PCM.WC.PN ---
Type of Wound Date of Service: 06/12/18 Chief Complaint: Nonhealing hidradenitis ulcer right axilla. History of Wound: Surgery 03/23/18 - Surgical preparation right axilla with excision hidradenitis (66 cm2). Wound care - Silver. Operative culture - negative. She was placed on Doxycycline perioperatively and has finished them. Prealbumin from 03/24/18 was 25.2. Encourage nutritional supplementation with protein to help the healing process. Encourage range of motion exercises to minimize stiffness. Today she denies fever. Her appetite is good. She has returned back to work and is doing ok. Progress of Wound: Healed. - Physical Exam Vital Signs Temp Pulse Resp BP 98.6 F 73 18 141/78 H 06/12/18 08:11 06/12/18 08:11 06/12/18 08:11 06/12/18 08:11 General: Alert, Oriented x3 HEENT: PERRLA, EOMI Oral: Moist Mucosa Neck: Supple Lungs: Clear to auscultation Cardiovascular: Regular rate, Regular Rhythm Abdomen: Soft, Non-Distended Extremities: - - good range of motion right shoulder. Skin: Ulcer/ Wound - right axillary ulcer has healed. Wound Measurements and Assessment WC - Nurse 1 - General Ulcer Measurement Start: 05/22/18 08:11 Freq: Status: Active Protocol: Activity Type Activity Date Activity User E-Sign Co-Sign Detail Recorded Client Recorded Date Recorded By Document 06/12/18 08:11 DL [id number] 06/12/18 08:16 DL 06/12/18 08:11 Wound Center Nurse 1 [Ulcer Assessment] #2 RIGHT AXILLARY -Current Size (cm) - Length 0 -Current Size (cm) - Width 0 -Current Size (cm) - Depth 0 -Total Square Cm 0 -Photo Taken Yes -Exudate Amt None Present (0 %) -Exudate Type Serosanguineous -Wound Margin Flat & Intact -Granulation Amt Large (67-100%) -Granulation Quality [place] -Necrosis Amt None Present (0 %) -Structure Exposed N/A -Texture (Shruthi-wound Skin Appearance) Scarring -Moisture (Shruthi-wound Skin Appearance No Abnormality ) -Color (Shruthi-wound Skin Appearance) No Abnormality -Temperature (Shruthi-wound Skin No Abnormality Appearance) (Pt Warm) -Tenderness on Palpation (Shruthi-wound No Skin Appearance) -Ulcer Cleansing Rinsed/ Irrigated with Saline -Foul Odor after Cleansing No WC - Nurse 2 - General Ulcer CM Notes Start: 05/22/18 08:11 Freq: Status: Active Protocol: Activity Type Activity Date Activity User E-Sign Co-Sign Detail Recorded Client Recorded Date Recorded By Document 06/12/18 08:34 [id number] 06/12/18 08:35 06/12/18 08:34 Wound Center Nurse 2 [Procedure/Treatment] -Correct Patient No -Correct Side, Site, Position No -Correct Procedure No -Procedure Performed No -Post Debridement Size (cm) - Length 0 -Post Debridement Size (cm) - Width 0 -Post Debridement Size (cm) - Depth 0 -Total Square Cm 0 -Wound/Ulcer Outcome Healed- Epithelialized [See Physician Procedure note for Specifics] Pain Scale: 0-10 Numeric [Pain] -Is Patient Pain Free? Yes Lymphatic: - - no axillary adenopathy. Neurological: Cranial nerves II-XII grossly intact Psych/Mental Status: Normal Affect, Appropriate Debridement Note Post-Debridement Measurements/Treatment - Nurse 2 - General Ulcer CM Notes Start: 05/22/18 08:11 Freq: Status: Active Protocol: Activity Type Activity Date Activity User E-Sign Co-Sign Detail Recorded Client Recorded Date Recorded By Document 05/22/18 08:25 [id number] 05/22/18 08:26 Document 05/29/18 08:47 [id number] 05/29/18 08:48 Document 06/05/18 08:38 [id number] 06/05/18 08:39 Document 06/12/18 08:34 [id number] 06/12/18 08:35 05/22/18 05/29/18 06/05/18 08:25 08:47 08:38 Wound Center Nurse 2 #2 RIGHT AXILLARY -Time 08:25 08:48 08:38 -Correct Patient Yes Yes Yes -Correct Side, Site, Position Yes Yes Yes -Correct Procedure Yes Yes Yes -Procedure Performed Yes Yes Yes -Type of Procedure Debridement Debridement Debridement -Clinical Debridement Subcutaneous Subcutaneous Subcutaneous -Post Debridement Size (cm) - Length 1.3 0.8 0.6 -Post Debridement Size (cm) - Width 2.8 1.7 0.9 -Post Debridement Size (cm) - Depth 0.1 0.2 0.1 -Total Square Cm 3.64 1.36 0.54 -Wound/Ulcer Outcome Not Healed Not Healed Not Healed -Ulcer Cleansing Rinsed/ Rinsed/ Rinsed/ Irrigated with Irrigated with Irrigated with Saline Saline Saline -Foul Odor after Cleansing No No No -Bioengineered Tissue No No No -Bleeding Controlled with Pressure Pressure Pressure -Treatment Response Procedure Procedure Procedure Tolerated Well Tolerated Well Tolerated Well Pain Scale: 0-10 Numeric Is Patient Pain Free? Yes Yes Yes 06/12/18 08:34 Wound Center Nurse 2 #2 RIGHT AXILLARY -Time -Correct Patient No -Correct Side, Site, Position No -Correct Procedure No -Procedure Performed No -Type of Procedure -Clinical Debridement -Post Debridement Size (cm) - Length 0 -Post Debridement Size (cm) - Width 0 -Post Debridement Size (cm) - Depth 0 -Total Square Cm 0 -Wound/Ulcer Outcome Healed- Epithelialized -Ulcer Cleansing -Foul Odor after Cleansing -Bioengineered Tissue -Bleeding Controlled with -Treatment Response Pain Scale: 0-10 Numeric Is Patient Pain Free? Yes Wound debrided: #2 Right axilla. Laterality: Right Wound Grade/Stage: 2. No debridement was completed today - the ulcer has healed. Assessment/Plan Assessment: Assessment: 1. Hidradenitis ulcer right axilla, healed. 2. Right axillary hidradenitis. 3. History of MRSA. 4. Smoker. 5. s/p surgical preparation right axilla with excision hidradenitis (66 cm2). Plan: The right axillary hidradenitis ulcer has healed. Encourage range of motion exercises to minimize stiffness. Massage incision with skin lotion daily to help soften up the scar. Encouraged patient to stop smoking as it may have deleterious effects on wound healing. She has returned to work and is doing ok. Followup on an as needed basis.
== END 2018-06-16 23:59 ==
LOC: WC 08:00
PROVIDERS: Family Provider Family Medicine; PCP Family Medicine; Visit Provider Surgery
DX: L73.2 Hidradenitis suppurativa (principal); F17.200 Nicotine dependence, unspecified, uncomplicated; Z86.14 Personal history of Methicillin resistant Staphylococcus aureus infection; L98.492 Non-pressure chronic ulcer of skin of other sites with fat layer exposed
CPT/HCPCS: 11042; 99212; G0463

== ENCOUNTER 2022-10-27 10:06 | Emergency (ER) | payer BC, MEDICAID, SELFPAY ==
[2022-10-27 10:08] VITALS: BP 141/89; PULSE 72; RESP 16; TEMP 36.6; O2SAT 100; BMI 38.0
--- NOTE | 2022-10-27 10:24 | CT_ITS ---
STUDY: CT ABDOMEN AND PELVIS WITH CONTRAST REASON FOR EXAM: Female, 37 years old. Diffuse abdominal pain RADIATION DOSAGE (If Supplied By Facility): CTDIvol = ( 16.01 ) mGy, DLP = ( 933.94 ) mGycm TECHNIQUE: Transaxial images were obtained through the abdomen and pelvis without oral contrast. 100 ml of Isovue-300 contrast was administered. Sagittal and coronal images were reconstructed. Individualized dose optimization techniques were used for this CT. COMPARISON: None. FINDINGS: LOWER THORAX: The visualized lung bases are clear. The visualized portions of the heart and pericardium are within normal limits. GALLBLADDER: There are no calcified gallstones present. LIVER: The liver is within normal limits. There are no suspicious hepatic lesions. SPLEEN: The spleen is normal in size. PANCREAS: The pancreas is within normal limits. ADRENAL GLANDS: There is a 2.2 x 1.8 cm indeterminate left adrenal nodule. The right adrenal gland is within normal limits. KIDNEYS / BLADDER: There are no renal or ureteral stones. There is no hydronephrosis. There are no focal renal lesions. The urinary bladder is partially distended and appears grossly unremarkable. STOMACH / BOWEL: Normal visualized stomach. There is no bowel obstruction or inflammation. There is a large amount of stool in the colon, consistent with constipation. The appendix is not visualized, but there are no findings to suggest acute appendicitis. PERITONEUM/RETROPERITONEUM: There are bilateral adnexal cyst with trace pelvic free fluid. There is no abdominal or pelvic free air, fluid collection or lymphadenopathy. There is an intrauterine device noted. VESSELS: The aorta is normal in caliber. BONES: There are no destructive osseous lesions. SOFT TISSUES: The visualized soft tissues are within normal limits. CT/Abdomen/Pelvis W IV Cont ONLY IMPRESSION: Bilateral adnexal cysts with trace pelvic free fluid. If indicated, further evaluation with ultrasound can be performed. No bowel obstruction or inflammation. Constipation. Normal kidneys. No hydronephrosis. Indeterminate left adrenal nodule Electronically Signed: Rosalio Mejía MD at 11:58 EDT ,
[2022-10-27] MEDS: Ondansetron 4 MG/2 ML Vial IV (10:32)
[2022-10-27] MEDS: Morphine 4 MG/ML Syringe 6 MG IV (10:32)
[2022-10-27] MEDS: 0.9% Normal Saline 1,000 ML 1000 ML IV (10:32)
[2022-10-27 10:36] LABS: Absolute Lymphocyte Count 1.51 X10^3/uL (0.83-4.51); Absolute Neutrophil Count 6.5 X10^3/uL (2.0-7.7); Basophil# 0.05 X10^3/uL; Basophil% 0.6 % (0-1); Eosinophil# 0.05 X10^3/uL; Eosinophils% 0.6 % (0-5); Hematocrit 43.2 % (37-47); Hemoglobin 14.5 g/dL (12.0-15.0); Lymphocyte # 1.51 X10^3/ul (0.83-4.51); Lymphocyte % 17.8 % (19-41); Mean Corp Hgb Conc 33.6 g/dL (32-36); Mean Corpuscular Hgb 28.9 pg (27.0-32.0); Mean Corpuscular Volume 86.2 fL (81-99); Mean Platelet Vol. 9.8 fl (6.2-12.0); Monocyte# 0.29 X10^3/uL; Monocyte% 3.4 % (0-10); NRBC Flagged by Analyzer 0 % (0-5); Neutrophil # 6.46 X10^3/uL (2.7-7.7); Platelet Count 308 K/mm3 (150-450); RBC Distribution Width CV 13.2 % (11.6-14.6); RBC Distribution Width SD 41.1 fl (35.1-43.9); Red Blood Count 5.01 M/mm3 (4.2-5.4); White Blood Count 8.5 K/mm3 (4.4-11.0)
--- NOTE | 2022-10-27 10:37 | ED.VIS.GI ---
HPI HPI - GI History of Present Illness Chief Complaint: Abd Pain Informant: patient Abdominal Pain/Flank Pain Onset: Today and Yesterday Context: Gradual Onset Timing: Continuous Quality: Cramping Location: Diffuse Current Severity: Moderate Maximum Severity: Moderate Worsened by: Nothing Relieved by: Nothing Nausea/Vomiting/Emesis GI Symptom: Positive for Nausea and Vomiting Onset: Today and Yesterday Severity: Mild Diarrhea/Melena/Hematochezia GI Symptom: Positive for Diarrhea Onset: Today and Yesterday Stool Quality: Positive for Loose Severity: Mild Associated Symptoms Associated Symptoms: Negative for Dysuria, Frequency, Hematuria or Urgency Narrative Narrative: 37-year-old female with a past medical history of prior appendectomy, , tubal ligation. No other prior abdominal surgeries. States last night around 11 PM started having diffuse abdominal pain with associated nausea, vomiting diarrhea. No dysuria. No fever. No prior history of this. Says continued today. She has had multiple episodes of vomiting and diarrhea. No melena or hematemesis. Prior similar symptoms: No Recent Illness/Hospitalization: No PFSH [facility] Medical History Hidradenitis suppurativa of left axilla Hidradenitis suppurativa of right axilla Personal history of Methicillin resistant Staphylococcus aureus infection Vision problems Home Medications docusate sodium 100 mg capsule 100 mg PO BID #60 caps 03/24/18 [Rx Last Taken Unknown] doxycycline hyclate 100 mg capsule 100 mg PO BID #28 caps 03/24/18 [Rx Last Taken Unknown] promethazine 25 mg tablet 25 mg PO 4X/DAY PRN PRN Nausea #30 tabs 03/24/18 [Rx Last Taken Unknown] ibuprofen 200 mg tablet 400 mg PO PRN PRN Pain 03/27/18 [History Last Taken Unknown] diazepam 5 mg tablet 5 mg PO 4X/DAY PRN PRN Spasms #30 tabs 04/03/18 [Rx Last Taken Unknown] oxycodone-acetaminophen 5 mg-325 mg tablet 1 - 2 tab PO 4X/DAY PRN PRN Pain 7 days #40 tabs 04/03/18 [Rx Last Taken Unknown] ondansetron 4 mg disintegrating tablet 4 mg PO Q8H PRN nausea and vomiting #7 tabs 10/27/22 [Rx Last Taken Unknown] Allergy/AdvReac Type Severity Reaction Status Date / Time No Known Allergies Allergy Verified 10/27/22 10:10 Family History Sister Diabetes Mother Heart disease Surgical History History of appendectomy History of History of hidradenitis suppurativa History of tonsillectomy Social History Smoking Status: Current every day smoker tobacco type: cigarettes alcohol intake: never substance use type: does not use additional social history: DOES NOT USE ASPIRIN DOES USE IBUPROFEN ROS ROS ED ROS Narrative Abdominal pain. Nausea, vomiting and diarrhea. Review of Systems ROS Unobtainable: Denies due to encephalopathy Constitutional Constitutional ED: Denies chills or fever(s) ENT ENT ED: Denies ear pain Cardiovascular Cardiovascular: Denies chest pain Respiratory/Chest Respiratory/Chest: Denies cough or dyspnea Gastrointestinal Gastrointestinal: Reports abdominal pain, diarrhea, nausea and vomiting; Denies constipation or melena Genitourinary Genitourinary ED: Denies dysuria or hematuria Musculoskeletal Musculoskeletal: Denies arthralgias Integumentary Denies abscess Neurologic Neurologic: Denies headache(s) Psychiatric Psychiatric: Denies anxiety Endocrine Endocrinology: Denies polydipsia or polyphagia Hematologic/Lymphatic Hematologic/Lymphatic: Denies easy bleeding Allergic/Immunologic Allergic/Immunologic ED: Denies mouth swelling EXAM Physical Exam Narrative Exam Narrative: 37-year-old female. Complaint of abdominal pain with nausea and vomiting. Vital signs are stable afebrile. Does not look septic or toxic. H EENT exam mildly dry mucous membranes. Neck nontender no JVD. Lungs clear to auscultation bilaterally. Heart regular rhythm rate about 70 no murmur. Abdomen is soft diffusely tender no peritoneal signs. No hernia or mass. No obvious distention. No specific right lower quadrant or Oliva sign tenderness. Moving all 4 extremities. Nontender no edema. Back nontender. Neurologically she is awake alert with no focal motor deficits. Const Vital Signs: 10/27/22 10:08 10/27/22 12:07 Temperature 97.9 F Temperature Source Temporal Pulse Rate 72 Respiratory Rate 16 16 Blood Pressure 141/89 H Blood Pressure Mean 106 Pulse Ox 100 Oxygen Delivery Method Room Air Positive well nourished, well developed and obese; Negative for cachectic, contractures or unkempt General Appearance ED: well developed and NAD; Negative for unkempt, cachectic, contractures or pallor Nutritional Appearance: obese; Negative for cachectic HEENT Reports dry mucous membranes; Denies moist mucous membranes normocephalic and atraumatic; Negative for trauma or tenderness Mouth ED: Yes dry mucous membranes Mouth: dry mucous membranes Eyes PERRL and EOMs intact bilaterally General Eye ED: Negative for pale conjunctiva or scleral icterus Neck no lymphadenopathy, supple and no JVD General: Negative for tenderness Carotids: Negative for other Lymph Lymphatic: Negative for other Resp normal respiratory effort and clear to auscultation bilaterally Effort and Inspection: Negative for respiratory distress Auscultation: Negative for rales, rhonchi or wheezes Cardio regular rate, regular rhythm, S1 normal heart sound, S2 normal heart sound and no murmurs Rhythm: Negative for abnormal rhythm GI non-distended and no masses; Negative for non-tender Inspection: Negative for abdominal distention Auscultation: normoactive bowel sounds Palpation: soft and tender; Negative for guarding, rigid, hernia, mass, pulsatile mass or rebound tenderness present Back/Spine no CVA tenderness General Back: Negative for CVA tenderness Cervical Spine: Negative for cervical spine tenderness Thoracic Spine / Upper Back: Negative for thoracic spinal tenderness Lumbar Spine / Lower Back: Negative for lumbar spinal tenderness Coccyx: Negative for other Extremity full ROM General Extremety ED: Negative for edema or tenderness General Extremity: Negative for edema Neuro CN's II-XII intact bilaterally and moves all extremities Sensorium / Orientation: alert, oriented to person, oriented to place and oriented to time; Negative for orientation impaired or confused Motor Exam: strength 5/5 throughout; Negative for general weakness or strength abnormal Psych mental status grossly normal and thought process normal Appearance: Negative for unkempt Attitude: No agitated Mood & Affect: Negative for depressed, anxious or tearful Skin no wounds General Skin Exam: Negative for jaundice or pallor Lesions: no lesions Rashes: no rashes Trauma: Negative for abrasion Nails: Negative for discolored MDM MDM MDM Narrative Medical decision making narrative: 37-year-old female diffuse abdominal pain with nausea vomiting diarrhea. Very well could be secondary to gastroenteritis. However differential would include gallbladder disease, diverticulitis per viscus. She does not have peritoneal signs at this time. Screening labs and CT abdomen pelvis will be obtained. She is diffusely tender. Patient be treated with IV morphine 6 mg and Zofran for nausea. A liter normal saline for dehydration. Repeat exam patient doing well at 11:55 AM and 12:25 PM. Abdomen is benign. She is feeling better. She has received IV fluids, morphine and Zofran. Clinically I think this is an acute viral gastroenteritis. Fluids and rest. Tylenol as needed. Zofran as needed for nausea. Follow-up as needed return if worse. History & Record Review Discussion w/independent historian: Patient Additional record(s) reviewed:: Prior inpatient record, Prior outpatient record, Prior ED visit and Prior labs Lab Data Attestation: I reviewed the patient's lab results. Lab results narrative: CBC shows normal white count 8.5. H&H 14.5 and 43. Platelets of 308. Chemistry shows sodium 134. Gap 4. Normal BUN/creatinine. Glucose 147. Liver enzymes unremarkable slightly elevated AST and ALT. Normal lipase. Serum test negative. UA negative. CAT scan unremarkable except for ovarian cyst with some possible free fluid. Labs: Laboratory Results - last 24 hr 10/27/22 10/27/22 10/27/22 10:19 10:19 10:19 WBC 8.5 RBC 5.01 Hgb 14.5 Hct 43.2 MCV 86.2 MCH 28.9 MCHC 33.6 RDW Std Deviation 41.1 RDW Coeff of Willie 13.2 Plt Count 308 MPV 9.8 Immature Gran % (Auto) 1.600 H Neut % (Auto) 76.0 H Lymph % (Auto) 17.8 L [place] % (Auto) 3.4 Eos % (Auto) 0.6 Baso % (Auto) 0.6 Absolute Neuts (auto) 6.5 Absolute Lymphs (auto) 1.51 Nucleated RBC % 0 Sodium 134 L Potassium 4.1 Chloride 106 Carbon Dioxide 24.0 Anion Gap 4 L BUN 15 Creatinine 0.80 Estim Creat Clear Calc 79.65 Est GFR (MDRD) Af Amer 104 Est GFR (MDRD) Non-Af 86 BUN/Creatinine Ratio 18.8 Glucose 147 H Calcium 9.3 Total Bilirubin 0.80 AST 47 H ALT 74 H Alkaline Phosphatase 57 Total Protein 7.0 Albumin 3.8 Globulin 3.2 Albumin/Globulin Ratio 1.2 Lipase 55 Serum , Qual NEGATIVE Urine Color Urine Clarity Urine pH Ur Specific [place] Urine Protein Urine Glucose (UA) Urine Ketones Urine Occult Blood Urine Nitrite Urine Bilirubin Urine Urobilinogen Ur Leukocyte Esterase Urine RBC Urine WBC Ur Squamous Epith Cells Urine Bacteria Urine Mucus 10/27/22 11:20 WBC RBC Hgb Hct MCV MCH MCHC RDW Std Deviation RDW Coeff of Willie Plt Count MPV Immature Gran % (Auto) Neut % (Auto) Lymph % (Auto) [place] % (Auto) Eos % (Auto) Baso % (Auto) Absolute Neuts (auto) Absolute Lymphs (auto) Nucleated RBC % Sodium Potassium Chloride Carbon Dioxide Anion Gap BUN Creatinine Estim Creat Clear Calc Est GFR (MDRD) Af Amer Est GFR (MDRD) Non-Af BUN/Creatinine Ratio Glucose Calcium Total Bilirubin AST ALT Alkaline Phosphatase Total Protein Albumin Globulin Albumin/Globulin Ratio Lipase Serum , Qual Urine Color Yellow Urine Clarity Sl. Cloudy Urine pH 8.0 Ur Specific [place] 1.010 Urine Protein 15 H Urine Glucose (UA) Normal Urine Ketones Negative Urine Occult Blood Negative Urine Nitrite Negative Urine Bilirubin Negative Urine Urobilinogen Normal Ur Leukocyte Esterase Negative Urine RBC 0 SEEN Urine WBC 0 SEEN Ur Squamous Epith Cells 0-5 SEEN Urine Bacteria 0 SEEN Urine Mucus 0 SEEN Radiography Diagnostic Testing: Clinical Impression(s) from Imaging Studies Abdomen/Pelvis CT 10/27/22 10:24 IMPRESSION: Bilateral adnexal cysts with trace pelvic free fluid. If indicated, further evaluation with ultrasound can be performed. No bowel obstruction or inflammation. Constipation. Normal kidneys. No hydronephrosis. Indeterminate left adrenal nodule Electronically Signed: Rosalio Mejía MD at 11:58 EDT , Discharge Plan Triage Chief Complaint: Abd Pain ED Provider: Silver Alvarez Dx/Rx/DC Orders Clinical Impression: Viral gastroenteritis, Abdominal pain Instructions: Viral Gastroenteritis Prescriptions: New ondansetron 4 mg tablet,disintegrating 4 mg PO Q8H PRN (Reason: nausea and vomiting) Qty: 7 0RF No Action doxycycline hyclate 100 MG capsule 100 mg PO BID Qty: 28 2RF promethazine 25 MG tablet 25 mg PO 4X/DAY PRN PRN (Reason: Nausea) Qty: 30 1RF docusate sodium 100 MG capsule 100 mg PO BID Qty: 60 0RF ibuprofen 200 MG tablet 400 mg PO PRN PRN (Reason: Pain) oxycodone-acetaminophen 1 TABLET tablet 1 - 2 tab PO 4X/DAY PRN PRN (Reason: Pain) 7 Days Qty: 40 0RF diazepam 5 MG tablet 5 mg PO 4X/DAY PRN PRN (Reason: Spasms) Qty: 30 0RF Primary Care Provider: iNkhil Osorio Referrals: Nikhil Osorio MD [Primary Care Provider] - 3-5 Days if not improving Activity Restrictions/Additional Instructions: Plenty of fluids and rest. Increase diet slowly as tolerated. History and exam are consistent with viral gastroenteritis. A virus. This should progressively improve. Zofran as needed for nausea. Follow-up with your doctor if not improving return if worse. Disposition Disposition: Home, Self Care
[2022-10-27 10:56] LABS: ALB/GLOB Ratio 1.2 RATIO (0.9-2.4); AST(SGOT) 47 U/L (15-37); Alanine Aminotransfer ALT/SGPT 74 U/L (13-56); Albumin, Serum 3.8 g/dL (3.2-5.0); Alkaline Phosphatase 57 U/L (45-117); Anion Gap 4 (5-15); BUN 15 mg/dL (7-18); BUN/Creat Ratio 18.8 RATIO (10-20); Calcium,Total 9.3 mg/dL (8.5-10.1); Chloride 106 mmol/L (98-107); EST Glomerular Filtration Rate 86 mL/min (>60); Est Glom Filt Rate - Afr Amer 104 mL/min (>60); Estimated Creatinine Clearance 79.65 ml/min; Globulin 3.2 g/dL (2.2-4.2); Glucose 147 mg/dL (74-106); Lipase 55 U/L (13-75); Potassium 4.1 mmol/L (3.5-5.1); Sodium Level 134 mmol/L (136-145)
[2022-10-27 10:57] LABS: Internal QC Validated? YES +Cl - CLEAR BKGD; Pregnancy, Serum, hCG Quali. NEGATIVE Negative
[2022-10-27 11:26] LABS: Bacteria 0 SEEN /hpf (None Seen); Mucous, Urine 0 SEEN /hpf (<or=2+); Red Blood Cells-Urine 0 SEEN /hpf (0-5); White Blood Cells 0 SEEN /hpf (0-5)
[2022-10-27 11:28] LABS: Color, Urine Yellow (Yellow); Glucose, Dipstick Normal (Normal); Ketone-Dipstick Negative (Negative); Leukocyte Esterase-Dipstick Negative /ul (Negative); Nitrite-Dipstick Negative (Negative); Occult Blood-Urine Negative /ul (Negative); Protein-Dipstick 15 mg/dl (Negative); Urine Bilirubin Dipstick Negative (Negative); Urine Clarity Sl. Cloudy (Clear); Urine Urobilinogen Normal (Normal)
[2022-10-27 11:39] LABS: Squamous Epithelial Cells - UA 0-5 SEEN /hpf (5-10)
[2022-10-27 12:07] VITALS: RESP 16
== END 2022-10-27 12:36 | disposition home or self-care (01) ==
PROVIDERS: Emergency Provider Emergency Medicine; PCP Family Medicine; Referring Provider Emergency Medicine; Visit Provider Emergency Medicine
DX: A08.4 Viral intestinal infection, unspecified (principal); R10.9 Unspecified abdominal pain; F17.210 Nicotine dependence, cigarettes, uncomplicated; E66.9 Obesity, unspecified
CPT/HCPCS: 74177; 80053; 81001; 83690; 84703; 85025; 96361; 96374; 96375; 99283; J7030; Q9967; J2405